=== PATIENT | male | born 1940 | race Caucasian/White ===

== ENCOUNTER 2021-10-31 10:58 | Outpatient (REF) | payer MEDICARE, OTHER, SELFPAY ==
[2021-10-31 12:20] LABS: Blood Urea Nitrogen 14 mg/dL (9-16); Estimated Glomerular Filt Rate > 60
== END 2021-10-31 10:59 | disposition home or self-care (01) ==
LOC: HO.LAB 10:58
PROVIDERS: PCP Internal Medicine; Referring Provider Internal Medicine Medical Oncology; Visit Provider Psychiatry & Neurology Neurology
DX: I63.50 Cerebral infarction due to unspecified occlusion or stenosis of unspecified cerebral artery (principal)
CPT/HCPCS: 36415; 82565; 84520

== ENCOUNTER 2021-11-08 08:51 | Outpatient (REF) | payer MEDICARE, OTHER, SELFPAY ==
--- NOTE | ~2021-11-08 | CT_ITS ---
EXAMINATION: CT ANGIOGRAM HEAD/NECK CLINICAL INFORMATION: 81-year-old with cerebral infarctions. COMPARISON: None TECHNIQUE: Volumetric CT angiography of the head and neck was done from the upper thorax to the skull vertex utilizing the bolus intravenous administration of 70 mL of Omnipaque 350 contrast material via power injector. Multiplanar reformatted reconstructions were performed with the addition of 3-D renderings performed on an independent workstation. The degree of stenosis determined by NASCET criteria. This CT examination was performed using dose optimization techniques as appropriate, variously including the following: *Automated exposure control *Adjustment of mA and/or kV according to patient size (this includes techniques or standardized protocols for targeted exams where dose is matched to indication/reason for exam; i.e. extremities or head) *Use of iterative reconstruction technique DLP: 2570 mGy-cm FINDINGS: Pre and postcontrast CT brain: Cthl-[id number] generalized diffuse brain parenchymal volume loss without focal regional predominance within the limitations of a qualitative assessment. There are patchy and confluent regions of hypodensity within the subcortical and deeper white matter of both cerebral hemispheres consistent with chronic ischemic microangiopathy. Ganglionic structures appear intact. There is a wedge-shaped zone of hypodensity spanning the neves-white junction with focal sulcal effacement in the left occipital lobe with minimal, faint gyral enhancement in this region consistent with a subacute left [employer] territory infarct. No other cortical infarcts are identified. There is a 6 mm ovoid hyperdensity in the posterior left centrum semiovale white matter with a rim of subtle surrounding hypodensity suggesting a small focus of parenchymal hemorrhage or hemorrhagic infarct. Small remote subcortical white matter infarcts are seen in the frontal lobes bilaterally. No extra-axial fluid collections are identified. The ventricular system and subarachnoid spaces are consistent with [id number] volume loss without hydrocephalus. Bilateral carotid calcifications are noted. Bony structures are intact. The visualized airspaces are unopacified. Probable cerumen in the EACs bilaterally. CTA NECK: The visualized thoracic aortic arch is patent and normal in caliber. There is a normal three-vessel arch configuration. The brachiocephalic vessels are patent and normal in caliber with some atheromatous calcification of the innominate artery. There is some atheromatous calcification near the origins of both vertebral arteries. The subclavian arteries are patent and normal in caliber bilaterally. The right vertebral artery is dominant. There is approximately 60% diameter reduction stenosis of the origin of the right vertebral artery utilizing NASCET type criteria. There is less than 50% diameter reduction stenosis at the origin of the left vertebral artery also using NASCET type criteria. Otherwise, the remainder of the cervical vertebral arteries are patent throughout the remainder of the neck without significant focal stenosis or segmental occlusion. The right common carotid artery is patent and normal in caliber. There is densely calcified plaque at the right carotid bulb spanning into the proximal right internal carotid artery. At the level of the right ICA origin, there is approximately 70% diameter reduction stenosis based on NASCET criteria. More distally within the proximal ICA, there is greater than 70% diameter reduction stenosis. The ECA is patent and normal in caliber. The mid to distal right ICA is patent and normal in caliber. The left common carotid artery is patent and normal in caliber. There are foci of calcified plaque spanning the left carotid bifurcation and left carotid bulb/proximal left ICA. There is approximately 50% diameter reduction of stenosis of the proximal left ICA. The ECA is patent and normal in caliber. More distally, the mid to distal left ICA is patent and normal in caliber. CTA HEAD: The intracranial internal carotid arteries are patent and normal in caliber with bilateral neural calcifications of the carotid siphons. The A1 and A2 segments are patent and normal in caliber. The M1 segments are patent and normal in caliber with a normal appearance to the M2 branches bilaterally. The intradural vertebral arteries are patent. There is some calcified plaque corresponding to both intradural vertebral arteries, left more than right without significant focal stenosis. The basilar artery is patent and normal in caliber. Superior cerebellar and posterior cerebral arteries are patent and normal in caliber. There is limited assessment of the visualized soft tissue neck structures due to the technique used. There is a 1.5 cm nodule in the left thyroid lobe. Recommend follow up thyroid ultrasound. 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 There are degenerative changes at the first costomanubrial junctions and also at the sternoclavicular junctions, right more than left. CT/CT angio head neck IMPRESSION: 1. Focal subacute infarct in the left posterior occipital lobe and a subcentimeter focus of acute or subacute parenchymal hemorrhage versus hemorrhagic infarct in the left posterior centrum semiovale white matter. Chronic ischemic microangiopathy in the white matter of both cerebral hemispheres with small remote subcortical white matter infarcts in the frontal lobes bilaterally. 2. Atheromatous calcified plaque at both carotid bifurcations and proximal ICAs, right more than left with 70% diameter reduction stenosis in the proximal right ICA and within the right carotid bulb, with less than 50% diameter reduction stenosis of the proximal left ICA by NASCET criteria. 3. Calcified plaque at the origins of the vertebral arteries bilaterally, with the right being dominant, with approximately 60% diameter reduction stenosis of the origin of the right vertebral artery and less than 50% diameter reduction stenosis at the origin of the left vertebral artery. 4. No intracranial arterial stenosis or occlusion. The [facility] staff will call to confirm receipt of this report with acknowledgement of the findings and any recommendations.
[2021-11-08] MEDS: iohexoL 350 MG/ML 100 ML INFUS..BTL IV (09:56)
== END 2021-11-08 08:52 | disposition home or self-care (01) ==
LOC: HO.CT 08:51
PROVIDERS: Visit Provider Psychiatry & Neurology Neurology
DX: I63.50 Cerebral infarction due to unspecified occlusion or stenosis of unspecified cerebral artery (principal)
CPT/HCPCS: 70496; 70498; Q9967

== ENCOUNTER → 2021-11-18 09:32 | Outpatient (REF) | payer MEDICARE, OTHER, SELFPAY ==
--- NOTE | 2021-11-18 09:38 | ECG_ITS ---
Hook-up date: 2021-11-18 08:52:00 Duration: 47:59:00 Test Indications: MULTIPLE CEREBRAL INFARCTIONS Medications: [id number] QRS complexes 175 Ventricular ectopics which represent <1 % of total QRS comp. 1069 Supraventricular ectopics which represent <1 % of total QRS comp. * Paced QRS complexs which represent % of total QRS comp. VENTRICULAR ECTOPY 175 Isolated 0 Bigeminal Cycles 0 Couplets 0 Runs 0 Beats in Runs * Beats LONGEST at * BPM at :: -- * Beats FASTEST at * BPM at :: -- SUPRAVENTRICULAR ECTOPY 942 Isolated 39 Couplets 8 Runs 49 Beats in Runs 15 Beats LONGEST at 142 BPM at 04:06:00 2021-11-20 6 Beats FASTEST at 173 BPM at 15:26:25 2021-11-19 HEART RATES 52 MIN at 01:33:04 2021-11-20 73 AVG 110 MAX at 15:41:22 2021-11-19 LONGEST RR 1.2560 secs at 10:51:36 2021-11-19 S-T LEVELS Channel 1 - 128 mm at 08:52:00 2021-11-18 - 128 mm at 08:52:00 2021-11-18 Channel 2 - 128 mm at 08:52:00 2021-11-18 - 128 mm at 08:52:00 2021-11-18 Channel 3 - 128 mm at 02:81:11 -- - 128 mm at 02:81:11 Basic rhythm Normal sinus rhythm No long pause or profound bradycardia Occasional Premature atrial complexes Multiple short runs of SVEs, longest 15 beats and fastest 173 bpm Patient did not report any symptoms in the diary Referred By: Mary Jasmine Overread By: CHENCHO BACA MD
== END ==
LOC: HO.CARD 09:32
PROVIDERS: PCP Internal Medicine; Visit Provider Psychiatry & Neurology Neurology
DX: Z86.73 Personal history of transient ischemic attack (TIA), and cerebral infarction without residual deficits (principal)
CPT/HCPCS: 93225; 93226

== ENCOUNTER 2022-01-25 09:58 | Inpatient (IN) | payer MEDICARE, OTHER, SELFPAY ==
[2022-01-25] VITALS (8 sets, daily range): BP systolic 90–157; BP diastolic 37–67; PULSE 81–97; RESP 13–20; TEMP 36.5–37.3; O2SAT 92–99; BMI 21.9
--- NOTE | ~2022-01-25 | XR_ITS ---
EXAMINATION: XR CHEST CLINICAL INFORMATION: Syncope, vomiting, prior pneumonia. COMPARISON: None TECHNIQUE: 2 views of the chest were obtained. FINDINGS: There are areas of parenchymal density seen lateral aspect of both lungs which may be related to pneumonitis however lung masses cannot be excluded. No definite hilar abnormalities appreciated. Heart normal size. No evidence of pulmonary edema. There appears to be a small right pleural effusion and minimal left posterior sulcus blunting which may represent a tiny effusion. No pneumothorax is identified. There is calcification of the anterior longitudinal ligament throughout the thoracic spine. XR/XR chest 2V IMPRESSION: Bilateral regions of parenchymal density which may be related to pneumonia however lung mass not excluded.
--- NOTE | ~2022-01-25 | CT_ITS ---
EXAMINATION: CT HEAD WITHOUT CONTRAST CLINICAL INFORMATION: Syncope COMPARISON: Previous head CTA October 2021 TECHNIQUE: Contiguous axial imaging was performed from the skull base to vertex without intravenous administration of contrast. This CT examination was performed using dose optimization techniques as appropriate, variously including the following: *Automated exposure control *Adjustment of mA and/or kV according to patient size (this includes techniques or standardized protocols for targeted exams where dose is matched to indication/reason for exam; i.e. extremities or head) *Use of iterative reconstruction technique DLP: 716 mGy-cm FINDINGS: There is no evidence of an extra-axial collection. There is no evidence of intra-axial or extra-axial hemorrhage. Ventricles and extra-axial CSF spaces are prominent suggestive of generalized atrophy. There is nonspecific periventricular white matter disease. There is an old or evolving left occipital infarct similar to October 2021 exam. There may be right frontal parietal subcortical white matter infarct that is similar to previous exam. No mass or mass effect or acute infarct is seen. There is atherosclerotic disease. No skull fracture is seen. Visualized paranasal sinuses, mastoid air cells and middle ears are clear. CT/CT head/brain wo IV con IMPRESSION: Generalized atrophy and nonspecific periventricular white matter disease. Left occipital and right subcortical white matter frontal infarcts similar to October 2021 exam. Small focus of intraparenchymal hemorrhage in the left posterior centrum semiovale is no longer seen.
--- NOTE | ~2022-01-25 | CT_ITS ---
EXAMINATION: CT CHEST WITHOUT CONTRAST CLINICAL INFORMATION: Chest mass. COMPARISON: Chest x-ray 01/25/2022. TECHNIQUE: Multidetector volumetric CT imaging of the chest was done. Axial MIP volume rendering provided. Sagittal and coronal reformatted images were obtained. This CT examination was performed using dose optimization techniques as appropriate, variously including the following: *Automated exposure control *Adjustment of mA and/or kV according to patient size (this includes techniques or standardized protocols for targeted exams where dose is matched to indication/reason for exam; i.e. extremities or head) *Use of iterative reconstruction technique DLP: 295 mGy-cm FINDINGS: LUNGS: Bilateral bibasilar atelectasis due to bilateral pleural effusions. There are also patchy parenchymal airspace opacities at the lateral anterior right lower lobe. There is a pleural-based masslike lesion at the anterior left upper lobe. This measures approximately 2.5 x 2.5 x 1.2 cm. Axial image 40/70 series 4, sagittal image 17/105 series 9. There is surrounding reticular linear opacities adjacent to this lesion.. MEDIASTINUM: Heart size is normal. Trace pericardial effusion. Moderate volume of coronary artery calcification. No mediastinal mass or significant lymphadenopathy. Thyroid is unremarkable. PLEURA: Moderate to large volume bilateral pleural effusions. AXILLA: No lymphadenopathy. UPPER ABDOMEN: Multiple ill-defined hypodense lesions of liver. Largest segment 8 right lobe of liver measuring about 5 cm. Given the presence of chest mass these are suspicious for metastatic disease. Status post cholecystectomy. Pancreas partially visualized is atrophic. No abnormality visualized portions of spleen or kidneys. Adrenal glands are normal. OSSEOUS STRUCTURES: Multilevel degenerative spondylosis of spine. There are mild osteosclerotic changes of the medial right clavicle at the sternoclavicular joint. Nonspecific but given the presence of the chest mass and liver lesions could be due to metastatic disease versus degenerative change. Sagittal image 66/29 series 9, axial image 15/70 series 4. There is no cortical loss or associated soft tissue mass. CT/CT chest wo IV con IMPRESSION: 1. Irregular pleural-based mass left upper lobe measuring 2.5 cm. This is suspicious. Consider interventional radiology consult to assess for tissue sampling. 2. Dependent atelectasis at both lung bases. Bilateral pleural effusions. 3. Multiple low attenuating lesions in the liver suspicious of metastatic disease. MRI without and with contrast may be helpful for further assessment. 4. Osteosclerotic medial right clavicle. Fleischner guidelines were followed.
--- NOTE | ~2022-01-25 | FL_ITS ---
EXAMINATION: XR BARIUM SWALLOW CLINICAL INFORMATION: Aspiration COMPARISON: None TECHNIQUE: Routine modified barium swallow was performed with the patient in a left lateral seated position. The patient took thin, nectar, honey-thick, and puree consistencies of barium without difficulty. FINDINGS: The patient demonstrated poor oral bolus formation. There was a slight delay in the swallow trigger mechanism with moderate pooling of fluid in the vallecula and piriform sinuses. There was good contraction and elevation of the soft palate without evidence of nasopharyngeal reflux. There was significantly limited posterior tilt of the epiglottis. This was likely obscured by the prominent anterior cervical osteophytes, particularly at the C3-C4 level. No cricopharyngeal abnormalities were noted. There was lack of distention of the esophagus below the level of the parapharyngeal sinuses. This may been secondary to small boluses of liquid getting to this level, although a fixed narrowing cannot be excluded. There was silent aspiration with nectar consistency. There was deep penetration with thin liquids, which was ejected after a new cue. FLUOROSCOPY TIME: 2.6 minutes DOSE AREA PRODUCT: 1.550 Gy-cm2 (neves-centimeter squared) FL/FL barium swallow modified IMPRESSION: Aspiration with nectar consistency. Deep penetration with thin liquids. Diminished oral pharyngeal phase of swallow, with significantly limited posterior tilt of the epiglottis likely secondary to obstruction by a prominent anterior cervical osteophyte. Please see speech pathologist report for further information and recommendations.
--- NOTE | 2022-01-25 10:08 | ED_ITS ---
HPI - Syncope General Chief Complaint: Fall Stated Complaint: SYNCOPE Time Seen by Provider: 01/25/22 10:05 Source: patient and EMS Mode of arrival: EMS Limitations: no limitations History of Present Illness HPI narrative: Patient presents to the emergency department via EMS from [facility], report from EMS entails that patient had a syncopal episode today while he was sitting in his wheelchair he slid forward onto the ground. There is reports of no head strike. He is reportedly at facility for short-term rehab, and being treated for pneumonia. When asking the patient why he is here he states he is unsure. He does endorse having a cough. He denies nausea or vomiting however he is holding an emesis bag and has noticed since arrival to be dry heaving. He denies fevers, chills, dizziness, chest pain, shortness of breath, difficulty breathing, abdominal pain, numbness or tingling to his extremities. Related Data Home Medications Medication Instructions Recorded Confirmed acetaminophen 325 mg tablet 650 mg PO Q6H PRN Pain 01/25/22 01/25/22 apixaban 5 mg tablet 5 mg PO BID 01/25/22 01/25/22 aspirin 81 mg tablet,delayed 1 tab PO DAILY 01/25/22 01/25/22 release dexamethasone 0.5 mg tablet 0.5 mg PO DAILY 01/25/22 01/25/22 losartan 50 mg tablet 50 mg PO DAILY 01/25/22 01/25/22 lovastatin 40 mg tablet 1 tab PO BEDTIME 01/25/22 01/25/22 melatonin 5 mg tablet 5 mg PO BEDTIME PRN Insomnia 01/25/22 01/25/22 pantoprazole 40 mg tablet,delayed 40 mg PO DAILY 01/25/22 01/25/22 release tafluprost (PF) 0.0015 % eye drops 1 drp ophthalmic (eye) BEDTIME 01/25/22 01/25/22 in a dropperette (Zioptan (PF)) timolol maleate (PF) 0.5 % eye 1 drp ophthalmic (eye) BEDTIME 01/25/22 01/25/22 drops in a dropperette Allergies Allergy/AdvReac Type Severity Reaction Status Date / Time brimonidine Allergy Unknown Unknown Verified 01/25/22 10:11 latanoprost Allergy Unknown Unknown Verified 01/25/22 10:11 Review of Systems Review of Systems: Constitutional: No fever. No chills. Positive weakness. Skin: No rash. No itching. Cardiovascular: No chest pain. No chest pressure. No palpitations. No pedal edema. Respiratory: No shortness of breath. Positive cough. Positive sputum production. Gastrointestinal: No anorexia. No nausea. No vomiting. No diarrhea. No abdominal pain. Genitourinary: No burning micturition. No urinary frequency. No incontinence. Neurologic: No headache. No dizziness. Positive syncope. No unilateral weakness. No numbness. No tingling. Musculoskeletal: No muscle pain. No back pain. No joint pain. No stiffness. Yes all other systems are reviewed and are negative PMFSH Past Medical History Attestation statement: The following information was validated with the patient. Source: old records reviewed Medical History Cancer of liver CVA, old, hemiparesis Social History Social History Alcohol intake: never Patient Tobacco Use Status: Never used Tobacco Use of substances other than those prescribed or required for medical reasons: No Advance Directives: Yes Advance Directives on File: No Physical Exam Vital Signs: Vital Signs: Last Vital Signs Temp 97.9 F 01/25/22 15:54 Pulse 93 01/25/22 15:54 Resp 20 01/25/22 15:54 BP 127/38 L 01/25/22 15:54 Pulse Ox 95 01/25/22 15:54 O2 Del Method 01/25/22 15:54 BMI result Body Mass Index 21.9 Appearance: Alert.?Disoriented to person, place and time. No acute distress.?Normal affect. Eyes: Pupils equal, round and reactive to light.? EOMI. No nystagmus. ENT: Pharynx normal.?? Neck: Normal inspection.? Neck supple.?? CVS: Heart sounds normal. Normal heart rate and rhythm.? Pulses normal.?? Respiratory: No respiratory distress.? Lung sounds clear to auscultation bilaterally?? Abdomen: Soft and non-tender. Normoactive bowel sounds. No pulsatile mass.?? Skin: Skin warm and dry.? Normal skin color.? Extremities: No lower extremity edema.? No calf ttp? Neuro: Moves all extremities spontaneously. Sensation intact bilaterally. No focal neuro deficits. 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 Patient is a full code. He is a vague historian surrounding the events preceding arrival to the hospital. He currently appears in no distress, initially thought to be dry heaving though denying nausea/vomiting, suspect that this may be his attempt to clear secretions, notable yellow/brown, blood tinged sputum. Will obtain CBC to evaluate for leukocytosis/ anemia, CMP to evaluate for abnormal electrolytes /abnormal renal function/ abnormal hepatic/biliary function, EKG and troponin to evaluate for ischemia/ACS. Chest x-ray to evaluate for consolidation/ infiltrate/ mass/ pulmonary congestion, Urinalysis, CT head to exclude intracranial pathology as a source for syncope. Reevaluation(s) Reevaluation #1: I contacted the facility and spoke with the nurse practitioner Florencio. She states that patient was initially evaluated at [facility], he was found to have pneumonia and bilateral pulmonary embolisms. History of a CVA, date is unknown by his had dysplasia since the CVA. Nurse practitioner reports that while he has been in the facility has been having worsening dysphagia, increased confusion, baseline is disoriented x3, has become more deconditioned, not eating or drinking. His healthcare proxy was invoked 01/23/2022 which is his daughter Emerald Flores [phone]. Today sometime after breakfast patient was sitting in the chair and became unresponsive he did not slide out of the chair as initially reported he was lifted out of the chair and onto the bed, was noted to have gurgling secretions and there was concern for aspiration at this time. Per their report patient completed course of Augmentin on 01/10/2022, and is currently on Eliquis 5 mg twice daily for the bilateral pulmonary embolisms. He does have a history of liver cancer he is currently receiving dexamethasone daily, and his oral chemotherapy agent is on hold and per oncology is to be started over the next week. Daughter/healthcare proxy Bettye is currently at bedside to provide clarification. He has had intermittent confusion thought to be delirium typically occurring on the weekends over the past couple of weeks. She states that since 4 days ago he became confused but has not return to his normal baseline mentation which is atypical for him. She further reports that he has not yet started any oral chemotherapy agents. Since July 2021 is when he initially started receiving care after confusion was noted, he subsequently was diagnosed with CVA, and liver cancer. - Review of CT angio head and neck from October 2021 reveals a focal subacute infarct of the left posterior occipital lobe with chronic ischemic microangiopathy ICA stenosis and stenosis of bilateral vertebral arteries. Time: 10:27 Reevaluation #2: Initial EKG reveals normal sinus rhythm, however while in the room with patient monitor showing irregular rhythm with rate variable from 60s up to 130, will obtain repeat EKG for more accurate evaluation. Will add on blood cultures and lactic acid, and patient to receive ceftriaxone IV, concern for possible aspiration pneumonia, pending results of chest x-ray. Time: 10:49 Reevaluation #3: Repeat EKG does reveal sinus tachycardia with PACs and PVCs. CBC indicates leukocytosis WBC 13.4, and thrombocytopenia which appears new since 01/16/2022. Time: 11:18 Additional Reevaluation(s): 1155: Received critical results from lab lactic acid is 2.3. elevated troponin 130.8, to EKGs have already been reviewed with no acute ischemic findings, however will obtain delta troponin for repeat evaluation. Patient noted to have hypernatremia at 01:52, hypokalemia at 3.1, BUN of 39 and creatinine 1.05. Elevated transaminases. Would defer sepsis fluid bolus at this time, do not want to over correct hypernatremia to rapidly, at this time patient to receive normal saline 1 L IV bolus, potassium 10 mEq IV given his dysphagia would avoid replating orally at this time. Spoke with family and updated on all findings. Advised chest x-ray may be consistent with pneumonia verses mass/metastasis, at this time they are not interested in pursuing biopsy. They do report that he had a recent CT of the abdomen at [facility], which they were told included the bases of the lungs, but were not advised of any mass/possible metastasis at that time. Spoke with hospitalist, Dr. Mack, who accepts patient for admission to medicine service MDM - Syncope Medical Records Attestation: I reviewed the patient's medical records. Lab Data Attestation: I reviewed the patient's lab results. Result diagrams: 01/25/22 11:04 01/25/22 14:01 Labs: Lab Results 01/25/22 01/25/22 01/25/22 Range/Units 11:04 11:04 11:04 WBC 13.4 H (4.8-10.8) X10*3/uL RBC 4.38 L (4.60-5.80) X10*6/uL Hgb 12.2 L (14.0-18.0) g/dl Hct 39.8 L (42.0-52.0) % MCV 90.9 (80.0-98.0) fL MCH 27.9 (27.0-33.0) pg MCHC 30.7 L (31.0-36.0) g/dl RDW 15.7 (11.0-16.0) % Plt Count 107 L (160-400) X10*3/uL MPV 11.4 (9.4-12.4) fL Immature Gran % (Auto) 0.7 H (0.0-0.4) % Neut % (Auto) 78.9 H (45-73) % Lymph % (Auto) 13.9 L (20-40) % [place] % (Auto) 6.3 (2-11) % Eos % (Auto) 0.1 (0-4) % Baso % (Auto) 0.1 (0-2) % Lymph # (Auto) 1.9 (1.2-4.9) X10*3/uL [place] # (Auto) 0.8 (0.1-1.2) X10*3/uL Eos # (Auto) 0.0 (0.0-0.4) X10*3/uL Baso # (Auto) 0.0 (0.0-0.2) X10*3/uL Abs Immat Gran (auto) 0.10 H (0.00-0.03) X10*3/uL Absolute Neuts (auto) 10.6 H (2.0-8.3) x10*3/uL Absolute Nucleated RBC 0.000 (0.0-0.012) X10*3/uL Nucleated RBC % (auto) 0.0 (0.0-0.2) /100WBC Sodium 152 H (135-145) mmol/L Potassium 3.1 L (3.3-5.1) mmol/L Chloride 107 (96-108) mmol/L Carbon Dioxide 28 (22-29) mmol/L Anion Gap 20 (12-20) BUN 39 H (9-16) mg/dL Creatinine 1.05 (0.5-1.4) mg/dL Estim Creat Clear Calc 52.4 Estimated GFR > 60 Random Glucose 119 H (60-115) mg/dL Lactic Acid (0.5-2.0) mmol/L Lactic Acid F/U @ 2Hr (0.5-2.0) mmol/L Calcium 8.7 (8.4-10.2) mg/dL Magnesium 2.1 (1.6-2.6) mg/dL Total Bilirubin 2.4 H (0.0-1.0) mg/dL AST 173 H (5-37) U/L ALT 104 H (0-40) U/L Alkaline Phosphatase 1325 H D (39-117) U/L Troponin I High Sens 130.8 H* (<3.5-35.0) ng/L B-Natriuretic Peptide (<100) pg/mL Total Protein 6.3 L (6.5-8.0) g/dL Albumin 3.2 L (3.5-5.0) g/dL COVID-19 ([facility]) (Negative) COVID-19 Clin Com 01/25/22 01/25/22 01/25/22 Range/Units 11:04 11:04 11:04 WBC (4.8-10.8) X10*3/uL RBC (4.60-5.80) X10*6/uL Hgb (14.0-18.0) g/dl Hct (42.0-52.0) % MCV (80.0-98.0) fL MCH (27.0-33.0) pg MCHC (31.0-36.0) g/dl RDW (11.0-16.0) % Plt Count (160-400) X10*3/uL MPV (9.4-12.4) fL Immature Gran % (Auto) (0.0-0.4) % Neut % (Auto) (45-73) % Lymph % (Auto) (20-40) % [place] % (Auto) (2-11) % Eos % (Auto) (0-4) % Baso % (Auto) (0-2) % Lymph # (Auto) (1.2-4.9) X10*3/uL [place] # (Auto) (0.1-1.2) X10*3/uL Eos # (Auto) (0.0-0.4) X10*3/uL Baso # (Auto) (0.0-0.2) X10*3/uL Abs Immat Gran (auto) (0.00-0.03) X10*3/uL Absolute Neuts (auto) (2.0-8.3) x10*3/uL Absolute Nucleated RBC (0.0-0.012) X10*3/uL Nucleated RBC % (auto) (0.0-0.2) /100WBC Sodium (135-145) mmol/L Potassium (3.3-5.1) mmol/L Chloride (96-108) mmol/L Carbon Dioxide (22-29) mmol/L Anion Gap (12-20) BUN (9-16) mg/dL Creatinine (0.5-1.4) mg/dL Estim Creat Clear Calc Estimated GFR Random Glucose (60-115) mg/dL Lactic Acid 2.3 H* (0.5-2.0) mmol/L Lactic Acid F/U @ 2Hr (0.5-2.0) mmol/L Calcium (8.4-10.2) mg/dL Magnesium (1.6-2.6) mg/dL Total Bilirubin (0.0-1.0) mg/dL AST (5-37) U/L ALT (0-40) U/L Alkaline Phosphatase (39-117) U/L Troponin I High Sens (<3.5-35.0) ng/L B-Natriuretic Peptide 304 H (<100) pg/mL Total Protein (6.5-8.0) g/dL Albumin (3.5-5.0) g/dL COVID-19 ([facility]) Negative (Negative) COVID-19 Clin Com See Note 01/25/22 01/25/22 01/25/22 Range/Units 14:01 14:01 14:01 WBC (4.8-10.8) X10*3/uL RBC (4.60-5.80) X10*6/uL Hgb (14.0-18.0) g/dl Hct (42.0-52.0) % MCV (80.0-98.0) fL MCH (27.0-33.0) pg MCHC (31.0-36.0) g/dl RDW (11.0-16.0) % Plt Count (160-400) X10*3/uL MPV (9.4-12.4) fL Immature Gran % (Auto) (0.0-0.4) % Neut % (Auto) (45-73) % Lymph % (Auto) (20-40) % [place] % (Auto) (2-11) % Eos % (Auto) (0-4) % Baso % (Auto) (0-2) % Lymph # (Auto) (1.2-4.9) X10*3/uL [place] # (Auto) (0.1-1.2) X10*3/uL Eos # (Auto) (0.0-0.4) X10*3/uL Baso # (Auto) (0.0-0.2) X10*3/uL Abs Immat Gran (auto) (0.00-0.03) X10*3/uL Absolute Neuts (auto) (2.0-8.3) x10*3/uL Absolute Nucleated RBC (0.0-0.012) X10*3/uL Nucleated RBC % (auto) (0.0-0.2) /100WBC Sodium 156 H (135-145) mmol/L Potassium 3.5 (3.3-5.1) mmol/L Chloride 109 H (96-108) mmol/L Carbon Dioxide 28 (22-29) mmol/L Anion Gap 22 H (12-20) BUN 41 H (9-16) mg/dL Creatinine 1.02 (0.5-1.4) mg/dL Estim Creat Clear Calc 53.9 Estimated GFR > 60 Random Glucose 109 (60-115) mg/dL Lactic Acid (0.5-2.0) mmol/L Lactic Acid F/U @ 2Hr 3.1 H* (0.5-2.0) mmol/L Calcium 8.5 (8.4-10.2) mg/dL Magnesium (1.6-2.6) mg/dL Total Bilirubin (0.0-1.0) mg/dL AST (5-37) U/L ALT (0-40) U/L Alkaline Phosphatase (39-117) U/L Troponin I High Sens 120.6 H* (<3.5-35.0) ng/L B-Natriuretic Peptide (<100) pg/mL Total Protein (6.5-8.0) g/dL Albumin (3.5-5.0) g/dL COVID-19 ([facility]) (Negative) COVID-19 Clin Com Imaging Data Chest x-ray: Radiologist's impression: XR/XR chest 2V IMPRESSION: Bilateral regions of parenchymal density which may be related to pneumonia however lung mass not excluded. CT scan - head: Radiologist's impression: CT/CT head/brain wo IV con IMPRESSION: Generalized atrophy and nonspecific periventricular white matter disease. Left occipital and right subcortical white matter frontal infarcts similar to October 2021 exam. Small focus of intraparenchymal hemorrhage in the left posterior centrum semiovale is no longer seen. ECG Data Attestation: I personally reviewed and interpreted this ECG as follows: ECG interpretation date: 01/25/22 Interpretation: Rate: 86 Rhythm:? Normal sinus rhythm Normal P waves.? Normal [place].?? Normal QRS complex.?? ST T wave :??No ST elevation, no ST depression, nonspecific ST abnormality qTC: 356 prior studies:? None available for review The study has been interpreted contemporaneously by me. Discharge Plan Discharge Clinical Impression: Dehydration, Hypernatremia, Hypokalemia, Pneumonia, Elevated troponin, Cancer of liver, Sepsis Patient Disposition: Admitted As Inpatient
--- NOTE | 2022-01-25 10:11 | ECG_ITS ---
Test Reason : syncope Blood Pressure : / mmHG Vent. Rate : 086 BPM Atrial Rate : 086 BPM P-R Int : 114 ms QRS Dur : 082 ms QT Int : 298 ms P-R-T Axes : 049 -15 054 degrees QTc Int : 356 ms Normal sinus rhythm Nonspecific ST and T wave abnormality Abnormal ECG No previous ECGs available Referred By: Dea Cobb Electronically Signed By:MELY ARRIETA
--- NOTE | 2022-01-25 10:47 | ECG_ITS ---
Test Reason : syncope repeat Blood Pressure : / mmHG Vent. Rate : 118 BPM Atrial Rate : 125 BPM P-R Int : 114 ms QRS Dur : 078 ms QT Int : 330 ms P-R-T Axes : 056 -18 072 degrees QTc Int : 462 ms Sinus tachycardia with Premature atrial complexes with Aberrant conduction Nonspecific T wave abnormality Abnormal ECG When compared with ECG of 25-JAN-2022 10:04, Aberrant conduction is now Present Heart rate has increased Referred By: Dea Cobb Electronically Signed By:MELY ARRIETA
[2022-01-25] MEDS: cefTRIAXone sodium 1 GM in 0.9 % Sodium Chloride 50 ML IV (11:05)
[2022-01-25 11:11] LABS: MANUAL DIFF FLAG NO
[2022-01-25 11:17] LABS: Basophils Percent Auto 0.1 % (0-2); Eosinophils Percent Auto 0.1 % (0-4); Hematocrit 39.8 % (42.0-52.0); Hemoglobin 12.2 g/dl (14.0-18.0); Imm Gran Pct Auto 0.7 % (0.0-0.4); Lymphocytes Absolute Auto 1.9 X10*3/uL (1.2-4.9); Lymphocytes Percent Auto 13.9 % (20-40); Mean Corpuscular HGB Conc 30.7 g/dl (31.0-36.0); Mean Corpuscular Hemoglobin 27.9 pg (27.0-33.0); Mean Corpuscular Volume 90.9 fL (80.0-98.0); Mean Platelet Volume 11.4 fL (9.4-12.4); Monocytes Absolute Auto 0.8 X10*3/uL (0.1-1.2); Monocytes Percent Auto 6.3 % (2-11); Neutrophils Absolute Auto 10.6 x10*3/uL (2.0-8.3); Neutrophils Percent Auto 78.9 % (45-73); Platelet Count 107 X10*3/uL (160-400); Red Blood Count 4.38 X10*6/uL (4.60-5.80); Red Cell Distribution Width 15.7 % (11.0-16.0); White Blood Count 13.4 X10*3/uL (4.8-10.8)
[2022-01-25 11:36] LABS: B Type Natriuretic Peptide 304 pg/mL (<100)
[2022-01-25 11:37] LABS: COVID-19 Test Negative (Negative); IDNOW Serial# 9DB6401D
[2022-01-25 11:51] LABS: Alanine Aminotransferase 104 U/L (0-40); Albumin Level 3.2 g/dL (3.5-5.0); Alkaline Phosphatase 1325 U/L (39-117); Anion Gap 20 (12-20); Aspartate Amino Transferase 173 U/L (5-37); Bilirubin Total 2.4 mg/dL (0.0-1.0); Blood Urea Nitrogen 39 mg/dL (9-16); Calcium 8.7 mg/dL (8.4-10.2); Carbon Dioxide 28 mmol/L (22-29); Chloride 107 mmol/L (96-108); Creatinine Clr Calc Pharmacy 52.4; Estimated Glomerular Filt Rate > 60; Glucose Random 119 mg/dL (60-115); Magnesium 2.1 mg/dL (1.6-2.6); Potassium 3.1 mmol/L (3.3-5.1); Sodium 152 mmol/L (135-145); Total Protein 6.3 g/dL (6.5-8.0)
[2022-01-25 11:54] LABS: Lactic Acid 2.3 mmol/L (0.5-2.0)
[2022-01-25 11:55] LABS: Troponin-I High Sensitivity 130.8 ng/L (<3.5-35.0)
[2022-01-25 13:09] LABS: Reflex Lactate? Lactic Acid Added
[2022-01-25] MEDS: 0.9 % Sodium Chloride 1,000 ML 999 ML IV (13:35)
[2022-01-25] MEDS: Potassium Chloride/H20 10 MEQ/100 ML PIGGYBACK 100 MEQ IV (13:38)
--- NOTE | 2022-01-25 14:02 | PHA.MEDREC ---
Pharmacy Consult ? Medication Reconciliation Pharmacy has completed the medication reconciliation. Utilized list from [facility]
[2022-01-25 14:33] LABS: ~Lactic Acid-LAB USE ONLY 3.1 mmol/L (0.5-2.0)
[2022-01-25 14:37] LABS: Anion Gap 22 (12-20); Blood Urea Nitrogen 41 mg/dL (9-16); Calcium 8.5 mg/dL (8.4-10.2); Carbon Dioxide 28 mmol/L (22-29); Chloride 109 mmol/L (96-108); Creatinine Clr Calc Pharmacy 53.9; Estimated Glomerular Filt Rate > 60; Glucose Random 109 mg/dL (60-115); Potassium 3.5 mmol/L (3.3-5.1); Sodium 156 mmol/L (135-145)
[2022-01-25 14:42] LABS: Troponin-I High Sensitivity 120.6 ng/L (<3.5-35.0)
--- NOTE | 2022-01-25 15:15 | PM.IMHP ---
History of Present Illness Date of Service: 01/25/22 Chief Complaint: Fall, weakness, confusion An 81 years old male with PMH of PE on Eliquis, CVA with left hemiparesis, dysphagia, liver cancers, HTN, BPH among other who presented to the hospital from [facility] with confusion and a fall. The patient was not able to provide much of history but said that he has been feeling weaker and not eating well for the last few weeks. His at the bedside reported that he went from [facility] to the hospital when he was diagnosed with PE then went back to a different facility where he sting right now. She reports that he has been losing weight consistently for the last few months and his appetite was very low. His metastatic liver cancer is not on any active treatment at this point. The family still want him to be full code but they are open to discuss other options. Today he had a fall and an episode of being unresponsive at the facility with no reported head injury. Evaluated in the emergency with chest x-ray which showed an evidence of pneumonia versus mass. Lab workup was consistent with hypernatremia and elevated liver enzymes. Noticed to have leukocytosis with lactic acidosis. Admitted for further evaluation and treatment. Review of Systems Review of Systems: Having chills and reporting generalized weakness No chest pain, palpitation Coughing but denies feeling short of breath at rest No abdominal pain, nausea or vomiting No urinary symptoms Denies any rash or wounds PMFSH Medical History Cancer of liver CVA, old, hemiparesis Social History Alcohol intake: never Patient Tobacco Use Status: Never used Tobacco Use of substances other than those prescribed or required for medical reasons: No Advance Directives: Yes Advance Directives on File: No Meds Allergies Allergy/AdvReac Type Severity Reaction Status Date / Time brimonidine Allergy Unknown Unknown Verified 01/25/22 10:11 latanoprost Allergy Unknown Unknown Verified 01/25/22 10:11 Active Medications: Current Medications Dextrose (D5w) 1,000 mls @ 125 mls/hr IVCONT .Q8H BREE Piperacillin Sod/Tazobactam (Sod 3.375 gm/ Sodium Chloride) 50 mls @ 100 mls/hr IV Q6H [facility] Pharmacy Consult (Consult Rx Perform Med Rec) 1 each MISCELLANE ONCE PRN PRN Reason: Consult order Home Medications Medication Instructions Recorded Confirmed Last Taken Type acetaminophen 325 mg tablet 650 mg PO Q6H PRN Pain 01/25/22 01/25/22 Unknown History apixaban 5 mg tablet 5 mg PO BID 01/25/22 01/25/22 Unknown History aspirin 81 mg tablet,delayed 1 tab PO DAILY 01/25/22 01/25/22 Unknown History release dexamethasone 0.5 mg tablet 0.5 mg PO DAILY 01/25/22 01/25/22 Unknown History losartan 50 mg tablet 50 mg PO DAILY 01/25/22 01/25/22 Unknown History lovastatin 40 mg tablet 1 tab PO BEDTIME 01/25/22 01/25/22 Unknown History melatonin 5 mg tablet 5 mg PO BEDTIME PRN Insomnia 01/25/22 01/25/22 Unknown History pantoprazole 40 mg tablet,delayed 40 mg PO DAILY 01/25/22 01/25/22 Unknown History release tafluprost (PF) 0.0015 % eye drops 1 drp ophthalmic (eye) BEDTIME 01/25/22 01/25/22 Unknown History in a dropperette (Zioptan (PF)) timolol maleate (PF) 0.5 % eye 1 drp ophthalmic (eye) BEDTIME 01/25/22 01/25/22 Unknown History drops in a dropperette Physical Exam Vital Signs and Narrative: Vital Signs: Last Vital Signs Temp 98.6 F 01/25/22 10:30 Pulse 97 01/25/22 13:40 Resp 18 01/25/22 13:40 BP 155/57 H 01/25/22 13:40 Pulse Ox 96 01/25/22 13:40 O2 Del Method 01/25/22 13:40 BMI result Body Mass Index 21.9 Const: Other: Constitutional : Alert, interactive, shivering and mild distress Neck : Normal inspection, Supple Cardiovascular : RRR, no JVP, no lower extremity edema Respiratory : fair bilateral air entry, basal bilateral crackles, no wheezes Gastrointestinal: soft, lax, Normal bowel sounds, Non tender Skin : Warm, Dry Neurological : Alert & oriented to place and self, left-sided hemiparesis Results Labs CBC and Chem 7: 01/25/22 11:04 01/25/22 14:01 Labs: Laboratory Results - last 24 hr 01/25/22 01/25/22 01/25/22 11:04 11:04 11:04 MCV 90.9 MCH 27.9 MCHC 30.7 L RDW 15.7 Plt Count 107 L MPV 11.4 Immature Gran % (Auto) 0.7 H Neut % (Auto) 78.9 H Lymph % (Auto) 13.9 L Briscoe % (Auto) 6.3 Eos % (Auto) 0.1 Baso % (Auto) 0.1 Lymph # (Auto) 1.9 [place]iscoe # (Auto) 0.8 Eos # (Auto) 0.0 Baso # (Auto) 0.0 Abs Immat Gran (auto) 0.10 H Absolute Neuts (auto) 10.6 H Absolute Nucleated RBC 0.000 Nucleated RBC % (auto) 0.0 Anion Gap 20 Estim Creat Clear Calc 52.4 Estimated GFR > 60 Random Glucose 119 H Lactic Acid Lactic Acid F/U @ 2Hr Calcium 8.7 Magnesium 2.1 Total Bilirubin 2.4 H AST 173 H ALT 104 H Alkaline Phosphatase 1325 H D B-Natriuretic Peptide Total Protein 6.3 L Albumin 3.2 L COVID-19 ([facility]) Negative COVID-19 Clin Com See Note 01/25/22 01/25/22 01/25/22 11:04 11:04 14:01 MCV MCH MCHC RDW Plt Count MPV Immature Gran % (Auto) Neut % (Auto) Lymph % (Auto) Briscoe % (Auto) Eos % (Auto) Baso % (Auto) Lymph # (Auto) Briscoe # (Auto) Eos # (Auto) Baso # (Auto) Abs Immat Gran (auto) Absolute Neuts (auto) Absolute Nucleated RBC Nucleated RBC % (auto) Anion Gap Estim Creat Clear Calc Estimated GFR Random Glucose Lactic Acid 2.3 H* Lactic Acid F/U @ 2Hr 3.1 H* Calcium Magnesium Total Bilirubin AST ALT Alkaline Phosphatase B-Natriuretic Peptide 304 H Total Protein Albumin COVID-19 ([facility]) COVID-19 Clin Com 01/25/22 14:01 MCV MCH MCHC RDW Plt Count MPV Immature Gran % (Auto) Neut % (Auto) Lymph % (Auto) Briscoe % (Auto) Eos % (Auto) Baso % (Auto) Lymph # (Auto) Briscoe # (Auto) Eos # (Auto) Baso # (Auto) Abs Immat Gran (auto) Absolute Neuts (auto) Absolute Nucleated RBC Nucleated RBC % (auto) Anion Gap 22 H Estim Creat Clear Calc 53.9 Estimated GFR > 60 Random Glucose 109 Lactic Acid Lactic Acid F/U @ 2Hr Calcium 8.5 Magnesium Total Bilirubin AST ALT Alkaline Phosphatase B-Natriuretic Peptide Total Protein Albumin COVID-19 ([facility]) COVID-19 Clin Com Imaging Radiologist's Impressions: Impressions Chest X-Ray 01/25/22 11:30 IMPRESSION: Bilateral regions of parenchymal density which may be related to pneumonia however lung mass not excluded. Head CT 01/25/22 12:12 IMPRESSION: Generalized atrophy and nonspecific periventricular white matter disease. Left occipital and right subcortical white matter frontal infarcts similar to October 2021 exam. Small focus of intraparenchymal hemorrhage in the left posterior centrum semiovale is no longer seen. Assessment and Plan (1) Cancer of liver: Status: Inactive (2) Hypernatremia: Status: Acute (3) Dehydration: Status: Acute (4) Hypokalemia: Status: Acute (5) Pneumonia: Status: Acute (6) Sepsis: Status: Acute (7) Transaminitis: Status: Acute Plan An 81 years old male with PMH of PE on Eliquis, CVA with left hemiparesis, dysphagia, liver cancers, HTN, BPH among other who presented to the hospital from [facility] with confusion and a fall. Sepsis secondary to aspiration pneumonia Leukocytosis, lactic acidosis and tachycardia CXR concerning for bilateral basal infiltrate BS masses Pending blood cultures Start IV Zosyn Modified diet Metabolic encephalopathy 2/2 Hypernatremia secondary to dehydration Sodium of 156 at time of admission Start hydration with dextrose water Follow BMP closely with goal to decrease it by 8 Q 24 hours Transaminitis Likely secondary to sepsis and liver cancer To repeat values after starting treatment and monitor closely Hypokalemia Potassium of 3.1 from decreased oral intake Follow BMP Liver cancer Not on any active treatment at this point Family open to discuss goals of care Hypertension next Lyme continue losartan PE next Lyme continue Eliquis DVT PPX Eliquis The patient will need 2. Overnight hospital stay for treatment of sepsis and hypernatremia pending final blood cultures to prevent possible decompensation in to severe sepsis. Quality Stroke Does the patient have a stroke diagnosis?: No VTE Prior VTE?: No VTE Risk Level:: Medical - moderate - high VTE Device Contraindication: Treatment Not Indicated VTE Drug Contraindication: N/A - Med Ordered
--- NOTE | 2022-01-25 15:28 | PC.NURSE ---
Addendum entered by Beny Bonilla 01/25/22 15:42: made aware of patients request Original Note: Per patients patient needs nector thick liquids
[2022-01-25] MEDS: Piperacillin Sodium/Tazobactam 3.375 GM in 0.9 % Sodium Chloride 50 ML IV (16:05)
--- NOTE | 2022-01-25 16:06 | PC.NURSE ---
Addendum entered by Beny Bonilla 01/25/22 16:29: Patients HR fluctuating between 80s and 130s. MD aware. Original Note: made aware of patients fluctuating HR and low BP
[2022-01-25 16:09] LABS: Reflex Lactate? 2 Y
[2022-01-25] MEDS: Dextrose 5 % 1,000 ML 125 ML IVCONT (16:18)
[2022-01-25 17:55] LABS: ~Lactic Acid-LAB USE ONLY 2.9 mmol/L (0.5-2.0)
--- NOTE | 2022-01-25 17:58 | PC.NURSE ---
Dr. Scott notified about critical result of lactic acid 2.9
--- NOTE | 2022-01-25 18:15 | PC.NURSE ---
THIS ACCOUNTING/FINANCE TUTOR TRIED TO FEED PATIENT DINNER ,PATIENT REFUSED TO EAT OF DRINK ,PATIENT STATED HE DOES NOT WANT TO EAT OR DRINK ,PATIENT CONTINUE TO BE DRIED AND REPOSITION OFTEN ,RN MYRA AWARE .
[2022-01-25] MEDS: Lactated Ringers 1,000 ML 999 ML IV (18:34)
[2022-01-25 20:27] LABS: Lactic Acid 2.2 mmol/L (0.5-2.0)
[2022-01-25 20:28] LABS: Anion Gap 16 (12-20); Blood Urea Nitrogen 41 mg/dL (9-16); Calcium 7.8 mg/dL (8.4-10.2); Carbon Dioxide 28 mmol/L (22-29); Chloride 109 mmol/L (96-108); Creatinine Clr Calc Pharmacy 57.3; Estimated Glomerular Filt Rate > 60; Glucose Random 154 mg/dL (60-115); Potassium 3.1 mmol/L (3.3-5.1); Sodium 150 mmol/L (135-145)
[2022-01-25 22:06] LABS: Reflex Lactate? Lactic Acid Added
[2022-01-25 23:34] LABS: ~Lactic Acid-LAB USE ONLY 2.1 mmol/L (0.5-2.0)
--- NOTE | 2022-01-26 | ECG_ITS ---
Test Reason : SYNCOPE Blood Pressure : / mmHG Vent. Rate : 064 BPM Atrial Rate : 064 BPM P-R Int : 124 ms QRS Dur : 090 ms QT Int : 384 ms P-R-T Axes : 028 -20 -02 degrees QTc Int : 396 ms Sinus rhythm with Premature atrial complexes Nonspecific T wave abnormality Abnormal ECG When compared with ECG of 25-JAN-2022 11:02, Vent. rate has decreased BY 54 BPM Nonspecific T wave abnormality, improved in Inferior leads Nonspecific T wave abnormality no longer evident in Anterior leads Referred By: Misa Gómez Electronically Signed By:MELY ARRIETA
[2022-01-26] MEDS: Piperacillin Sodium/Tazobactam 3.375 GM in 0.9 % Sodium Chloride 50 ML IV ×5 (00:10→22:42)
[2022-01-26] MEDS: 0.9 % Sodium Chloride Flush 3 ML SYRINGE IVFLUSH ×2 (00:11→08:07)
[2022-01-26] MEDS: Pravastatin Sodium 40 MG TABLET PO ×2 (00:12→21:26)
[2022-01-26] MEDS: Apixaban 5 MG TABLET PO ×3 (00:12→21:26)
[2022-01-26] MEDS: timoloL maleate 0.5 % Oph Sol 5 ML DRBTL 1 DROP EYE-BOTH ×2 (00:13→21:30)
[2022-01-26 00:54] LABS: Reflex Lactate? 2 Y
[2022-01-26 01:09] VITALS: BMI 21.9
[2022-01-26] MEDS: Dextrose 5 % 1,000 ML 125 ML IVCONT ×2 (03:25→11:08)
[2022-01-26 04:00] VITALS: BP 156/86; PULSE 85; RESP 18; TEMP 36.8; O2SAT 98
[2022-01-26 07:36] VITALS: BP 153/68; PULSE 73; RESP 20; TEMP 36.7
[2022-01-26] MEDS: Losartan Potassium 50 MG TABLET PO (08:06)
[2022-01-26] MEDS: Aspirin Enteric Coated 81 MG TABLET.DR PO (08:07)
[2022-01-26 09:24] LABS: Hemoglobin 11.5 g/dl (14.0-18.0); Mean Corpuscular HGB Conc 31.1 g/dl (31.0-36.0); Mean Corpuscular Volume 90.2 fL (80.0-98.0); Red Cell Distribution Width 15.9 % (11.0-16.0); White Blood Count 21.3 X10*3/uL (4.8-10.8)
[2022-01-26 09:37] LABS: Anion Gap 14 (12-20); Blood Urea Nitrogen 36 mg/dL (9-16); Calcium 7.6 mg/dL (8.4-10.2); Carbon Dioxide 28 mmol/L (22-29); Chloride 107 mmol/L (96-108); Creatinine Clr Calc Pharmacy 58.5; Estimated Glomerular Filt Rate > 60; Glucose Random 161 mg/dL (60-115); Potassium 3.1 mmol/L (3.3-5.1); Sodium 146 mmol/L (135-145)
[2022-01-26 09:38] LABS: Alanine Aminotransferase 81 U/L (0-40); Albumin Level 2.6 g/dL (3.5-5.0); Alkaline Phosphatase 989 U/L (39-117); Aspartate Amino Transferase 124 U/L (5-37); Bilirubin Direct 1.2 mg/dL (0.0-0.5); Bilirubin Total 2.1 mg/dL (0.0-1.0); Total Protein 5.2 g/dL (6.5-8.0)
--- NOTE | 2022-01-26 09:46 | MHC.CM.PN ---
CM MET WITH PT AND HIS DAUGHTER, ALEXANDRE, WHO WAS AT BEDSIDE SHE REPORTS THE PT LIVES AT HOME WITH HIS AND WAS RECEIVING VNA SERVICES FROM [facility] SHE REPORTS HE WAS USING A CANE BUT PRIOR TO STR ADMISSION, WAS REQUIRING A WALKER AND SOMEONE TO FOLLOW HIM WITH A WHEELCHAIR SHE REPORTS MONEY EXAMINER, THE PT WAS AT [facility] FOR STR AND THE PLAN IS FOR HIM TO RETURN SHE REPORTS HE IS A BED HOLD WITH THEM PT HAS A MOLST AND HCP ON FILE ALEXANDRE REPORTS THE PTS HCP WAS INVOKED A COUPLE OF DAYS AGO HOWEVER THE PLAN IS TO REVIEW REGULARLY TO DETERMINE IF PT HAS RETURNED TO [facility]US SHE DID PROVIDE A COPY OF THE INVOCATION WHICH WAS SCANNED INTO [facility] AND PUT IN PTS CHART IMM DELIVERED CURRENT DC PLAN IS RETURN TO [facility] VIA S
[2022-01-26 10:13] LABS: Mean Platelet Volume 12.2 fL (9.4-12.4); Platelet Count 64 X10*3/uL (160-400)
[2022-01-26 10:18] VITALS: BMI 21.9
[2022-01-26 12:00] VITALS: BP 126/55; PULSE 66; RESP 20; TEMP 36.5; O2SAT 97
--- NOTE | 2022-01-26 14:02 | MHC.SL.SWA ---
Addendum entered and electronically signed by Michelle Tinajero MA, [facility]-PROCEDURES RN 01/26/22 18:22: D.S. Original Note: Speech Pathologist Impression:Dysphagia Risk of Aspiration Due to: Hx pnemonia and stroke Dysphasia Diet Status: Pending MBSS results Liquid Consistency and Strategies for Safe Swallow: Pending MBSS Solid Food Consistency: Dietary Recommendations: Pending MBSS Additional Modifications to Solid Foods: PROCEDURES RN recommended MBSS. Pt is currently in process of MBSS and dietary recommendations are pending that study. Oral Medication Intake: Pending MBSS Please contact the pharmacy regarding appropriate crushable or liquid drug formulations that are available whenever modified delivery is recommended. Compensatory Strategies and Precautions to be Taken for Safe Swallow: Sitting Upright (90 deg) Foods to Avoid: Per daughter's report, avoid the following as they don't agree with him : cranberry juice, apple sauce, orange juice Recommendation for Speech: Further Testing Needed Outpatient Speech Therapy Inpatient Speech Therapy Modified Barium Swallow Study - Inpatient Modified Barium Swallow Study - Outpatient Comment: MBSS is recommended d/t hx of pneumonia, possible aspiration, mucus buildup, coughing up sputum during bedside swallow eval this afternoon. PROCEDURES RN spoke directly with MD who put in referral for MBSS d/t inability to find safe consistency of liquids and solids for pt at bedside. Recommend NPO pending MBSS which will be performed today. PROCEDURES RN to update , RN, RD upon MBSS results later today. Credentialing Manager Clinican/Clinical Fellow: Yes: Lisseth Rodriguez M.A., CF-PROCEDURES RN Supervisory Statement: I have reviewed and agree with the student/clinical fellow's documentation: Speech Language Pathologist:
--- NOTE | 2022-01-26 14:04 | HO.PM.IMPN ---
Subjective Subjective Date of Service: 01/26/22 Interval History: seen and examined this morning follow up for dysphagia, aspiration pneumonia alert and oriented this morning denies shortness of breath Review of Systems Review of Systems: Yes all other systems are reviewed and are negative Constitutional Constitutional: Denies chills and Denies fever(s) ENT Ears, Nose, Mouth, and Throat: Denies dizziness Cardiovascular Cardiovascular: Denies chest pain and Denies dyspnea Respiratory Respiratory: Denies dyspnea Gastrointestinal Gastrointestinal: Denies abdominal pain Neurologic Neurologic: Denies dizziness Physical Exam Vital Signs: Vital Signs: Last Vital Signs Temp 97.7 F 01/26/22 12:00 Pulse 66 01/26/22 12:00 Resp 20 01/26/22 12:00 BP 126/55 L 01/26/22 12:00 Pulse Ox 97 01/26/22 12:00 O2 Del Method 01/26/22 12:00 BMI result Body Mass Index 21.9 Const: General: cooperative and no acute distress Nutritional Appearance: average body habitus Orientation/consciousness: oriented to person and oriented to place Resp: Effort & Inspection: normal respiratory effort and able to speak in complete sentences Auscultation: diminished lung sounds Cardio: Rate: regular rate Heart sounds: S1 normal heart sound present and S2 normal heart sound present GI: Inspection: No distended Palpation (GI): Soft to palpation and nontender Neuro: Other: grossly non-focal General: oriented to person and oriented to place Extrem: General: Yes no pedal edema Objective Data Active Medications Apixaban (Apixaban 5 Mg Tablet) 5 mg PO BID [facility] Last Admin: 01/26/22 08:07 Dose: 5 mg Documented By: THANIA Aspirin (Aspirin Enteric Coated 81 Mg Tablet.Dr) 81 mg PO DAILY [facility] Last Admin: 01/26/22 08:07 Dose: 81 mg Documented By: THANIA Benzonatate (Benzonatate 100 Mg Capsule) 100 mg PO TID PRN PRN Reason: Cough Dexamethasone (Dexamethasone 0.5 Mg Tablet) 0.5 mg PO DAILY [facility] Last Admin: 01/26/22 08:19 Dose: 0.5 mg Documented By: THANIA Dextrose (D5w) 1,000 mls @ 125 mls/hr IVCONT .Q8H [facility] Last Admin: 01/26/22 11:08 Dose: 125 mls/hr Documented By: THANIA Piperacillin Sod/Tazobactam (Sod 3.375 gm/ Sodium Chloride) 50 mls @ 100 mls/hr IV Q6H [facility] Last Infusion: 01/26/22 12:01 Dose: 100 mls/hr Documented By: THANIA Losartan Potassium (Losartan Potassium 50 Mg Tablet) 50 mg PO DAILY [facility]; Protocol Last Admin: 01/26/22 08:06 Dose: 50 mg Documented By: THANIA Melatonin (Melatonin 3 Mg Tablet) 6 mg PO BEDTIME PRN PRN Reason: Insomnia Non-Formulary Medication (Tafluprost (Pf) [Zioptan (Pf)]) 1 drop EYE-BOTH BEDTIME [facility] Omeprazole (Omeprazole 20 Mg Capsule.Dr) 20 mg PO DAILY@0630 [facility] Last Admin: 01/26/22 05:10 Dose: Not Given Documented By: MIGEL Non-Admin Reason: Patient Refused Ondansetron HCl (Ondansetron Hcl 4 Mg/2 Ml Vial) 4 mg IVPUSH Q8H PRN PRN Reason: Nausea and Vomiting Pharmacy Consult (Consult Rx Perform Med Rec) 1 each MISCELLANE ONCE PRN PRN Reason: Consult order Pravastatin Sodium (Pravastatin Sodium 40 Mg Tablet) 40 mg PO BEDTIME [facility] Last Admin: 01/26/22 00:12 Dose: 40 mg Documented By: MIGEL Sodium Chloride (0.9 % Sodium Chloride Flush 3 Ml Syringe) 3 ml IVFLUSH QSHIFT [facility] Last Admin: 01/26/22 08:07 Dose: 3 ml Documented By: THANIA Timolol Maleate (Timolol Maleate 0.5 % Oph Tracy 5 Ml Drbtl) 1 drop EYE-BOTH BEDTIME [facility] Last Admin: 01/26/22 00:13 Dose: 1 drop Documented By: MIGEL Labs CBC & Chem 7: 01/26/22 08:55 01/26/22 08:55 Labs: Laboratory Results - last 24 hr 01/25/22 01/25/22 01/25/22 14:01 14:01 17:31 MCV MCH MCHC RDW Plt Count MPV Absolute Nucleated RBC Nucleated RBC % (auto) Anion Gap 22 H Estim Creat Clear Calc 53.9 Estimated GFR > 60 Random Glucose 109 Lactic Acid Lactic Acid F/U @ 2Hr 3.1 H* Lactic Acid F/U @ 4Hr 2.9 H* Calcium 8.5 Total Bilirubin Direct Bilirubin AST ALT Alkaline Phosphatase Total Protein Albumin 01/25/22 01/25/22 01/25/22 20:02 20:02 22:51 MCV MCH MCHC RDW Plt Count MPV Absolute Nucleated RBC Nucleated RBC % (auto) Anion Gap 16 Estim Creat Clear Calc 57.3 Estimated GFR > 60 Random Glucose 154 H D Lactic Acid 2.2 H* Lactic Acid F/U @ 2Hr 2.1 H* Lactic Acid F/U @ 4Hr Calcium 7.8 L D Total Bilirubin Direct Bilirubin AST ALT Alkaline Phosphatase Total Protein Albumin 01/26/22 01/26/22 01/26/22 01:32 08:55 08:55 MCV 90.2 MCH 28.0 MCHC 31.1 RDW 15.9 Plt Count 64 L D MPV 12.2 Absolute Nucleated RBC 0.000 Nucleated RBC % (auto) 0.0 Anion Gap 14 Estim Creat Clear Calc 58.5 Estimated GFR > 60 Random Glucose 161 H Lactic Acid Lactic Acid F/U @ 2Hr Lactic Acid F/U @ 4Hr 2.0 Calcium 7.6 L Total Bilirubin Direct Bilirubin AST ALT Alkaline Phosphatase Total Protein Albumin 01/26/22 08:55 MCV MCH MCHC RDW Plt Count MPV Absolute Nucleated RBC Nucleated RBC % (auto) Anion Gap Estim Creat Clear Calc Estimated GFR Random Glucose Lactic Acid Lactic Acid F/U @ 2Hr Lactic Acid F/U @ 4Hr Calcium Total Bilirubin 2.1 H Direct Bilirubin 1.2 H AST 124 H ALT 81 H Alkaline Phosphatase 989 H D Total Protein 5.2 L Albumin 2.6 L Microbiology Microbiology Results: Microbiology 01/25/22 11:04 Blood Culture - Preliminary Blood - Venous No growth after 24 hours. 01/25/22 11:04 Blood Culture - Preliminary Blood - Venous No growth after 24 hours. Assessment and Plan (1) Cancer of liver: Status: Acute (2) Transaminitis: Status: Acute (3) Hypernatremia: Status: Acute (4) Hypokalemia: Status: Acute (5) Pneumonia: Status: Acute Plan An 81 years old male with PMH of PE on Eliquis, CVA with left hemiparesis, dysphagia, liver cancers, HTN, BPH among other who presented to the hospital from [facility] with confusion and a fall. Sepsis secondary to aspiration pneumonia Leukocytosis, lactic acidosis and tachycardia. WBC trending up but lactic acidosis and tachycardia resolved CXR concerning for bilateral basal infiltrate BS masses Continue IV Zosyn seen by speech - rec MBSS Blood cultures negative to date Currently Metabolic encephalopathy 2/2 Hypernatremia secondary to dehydration and sepsis improving Hypernatremia Sodium of 156 at time of admission, down to 146 Change from D5 to LR Follow BMP closely Transaminitis Likely secondary to sepsis and liver cancer To repeat values after starting treatment and monitor closely trending down slightly Hypokalemia Potassium of 3.1 from decreased oral intake replace and follow BMP Liver cancer Not on any active treatment at this point Family open to discuss goals of care Outpatient follow up with Dr. Vieyra at [facility] Elevated troponin trops flat likely demand related. no chest pain will repeat EKG Hypertension continue losartan h/o PE continue Eliquis DVT PPX Eliquis attending - dr. bhat Needs ongoing inpatient treatment for sepsis and hypernatremia pending final blood cultures to prevent possible decompensation to severe sepsis. Quality Stroke Does the patient have a stroke diagnosis?: No VTE Prior VTE?: No VTE Risk Level:: Medical - moderate - high VTE Device Contraindication: Treatment Not Indicated VTE Drug Contraindication: N/A - Med Ordered
[2022-01-26] MEDS: Lactated Ringers 1,000 ML 80 ML IVCONT (14:53)
[2022-01-26 15:14] VITALS: BP 143/63; PULSE 71; RESP 17; TEMP 36.3; O2SAT 96
--- NOTE | 2022-01-26 16:57 | MHC.SL.IMP ---
Date of Plan of Treatment: 01/26/22 Onset of Symptoms/Illness: 11/25/21 Date Treatment Started: 01/26/22 Admitting Diagnosis: Dehydration, hypernatremia, hypokalemia, PNA, elevated troponin, cancer of liver, sepsis Primary Speech & Language Diagnosis: R13.12 Oropharyngeal Phase Dysphagia Reason for Today's Visit: 72069 Modified Barium Swallow Study Pre-evaluation Dietary Consistencies: Grnd/Mech Altered (NDD2) Pre-evaluation Liquid Consistency: [place] Thick Pre-evaluation Medication Administration: Crushed with Puree HISTORY: Modified Barium Swallow Study Fluoroscopic Evaluation of Swallowing Function CPT Code 97521 Evaluation Year: 2021 Reason for Study: Patient displays overt s/s of aspiration. Referring Physician: Misa NI Evaluating Clinician: Michelle Tinajero MA, [facility] Study Number: 1 Patient Name: Spike Zuniga Status: Inpatient, Stretcher Age: 81 Gender: Male MEDICAL HISTORY: Year of Onset or Diagnosis: 2021 Comorbidities: Cancer of liver CVA Hemiparesis/hemiplegia of the left side Pulmonary embolism Dysphagia Pneumonia Malignant neoplasm of the liver Hypertension Hyperlipidemia Glaucoma BPH Current (pre-evaluation) Intake/Diet: Route: PO Diet Grade: Mechanical Soft Liquid Consistencies: [place] Pre-Study Functional Oral Intake Scale (FOIS): 5- Total oral intake of multiple consistencies requiring special preparation SUBJECTIVE: Pt is an 81 year old male brought to the hospital from [facility], there for short term rehab and being treated for pneumonia. Pt is being now admitted to [facility] for treatment of sepsis and hypernatremia. Per chart review, pt refused dinner last night, stating he did not want to eat or drink. Pt?s family reports pt has been consistently losing weight the last few months and his appetite has been very low. Per [employer] of [facility], pt arrived at their facility with recommendation for ground/mechanically altered solids (NDD2) and nectar thick liquids. [employer] from retirement also reported ?[facility] staff have seen a decrease in PO overall, mental status change and that pt ?appeared dehydrated? and was ?overwhelmed by sight of food on plate.? [employer] reported that [employer] introduced idea of PEG and IV fluids earlier this week. [employer] reported recent chemotherapy affecting his current status.? Pt reportedly lives home with his and was previously receiving VNA services from [facility]. 01/[address]: ?Generalized atrophy and nonspecific periventricular white matter disease. Left occipital and right subcortical white matter frontal infarcts similar to October 2021 exam. Small focus of intraparenchymal hemorrhage in the left posterior centrum semiovale is no longer seen.? 01/25 Chest X-Ray: ?FINDINGS: There are areas of parenchymal density seen lateral aspect of both lungs which may be related to pneumonitis however lung masses cannot be excluded. No definite hilar abnormalities appreciated. Heart normal size. No evidence of pulmonary edema. There appears to be a small right pleural effusion and minimal left posterior sulcus blunting which may represent a tiny effusion. No pneumothorax is identified. There is calcification of the anterior longitudinal ligament throughout the thoracic spine. XR/XR chest 2V IMPRESSION: Bilateral regions of parenchymal density which may be related to pneumonia however lung mass not excluded.? Oral Motor Exam Facial Symmetry: Symmetrical Facial Movement: Controlled Mouth Occlusion: Normal Oral-Facial Teeth Characteristics: Partially Missing, Spaces Oral-Facial Lip Pucker Description: Reduced ROM Oral-Facial Smile (Lips) Description: Normal Oral-Facial Puff Cheeks Description: Reduced Strength Tongue Size: Normal Tongue Excursion Description: Normal Tongue Range of Movement Description: Reduced Tongue Speed of Movement Description: Reduced Tongue Strength of Movement (against opposing pressure): Reduced Tongue Movement Characteristics: Normal/Absent Is patient able to produce volitional cough?: Yes Food and Liquid Trials: Oral Impairment: Lip Closure: 0=No labial escape Oral Impairment: Tongue Control During Bolus Hold: 1=Escape to lateral buccal cavity/floor of mouth (FOM) Oral Impairment: Bolus Preparation/Mastication: Did not test Oral Impairment: Bolus Transport/Lingual Motion: 3=Repetitive/disorganized tongue motion Oral Impairment: Oral Residue: 2=Residue collection on oral structures Oral Impairment:Initiation of Pharyngeal Swallow: 3=Bolus head in pyriforms Pharyngeal Impairment: Soft Palate Elevation: 1=Trace column of contrast or air between SP and PW Pharyngeal Impairment: Laryngeal Elevation: 2=Minimal superior movement of thyroid cartilage (see description) Pharyngeal Impairment: Anterior Hyoid Excursion: 2=No anterior movement Pharyngeal Impairment: Epiglottic Movement: 2=No inversion Pharyngeal Impairment: Laryngeal Vestibular Closure:: 1=Incomplete: narrow column air/contrast in laryngeal vestibule Pharyngeal Impairment: Pharyngeal Stripping Wave: 2=Absent Pharyngeal Impairment: Pharyngeal Contraction: Did not test Pharyngeal Impairment: Pharyngoesophageal Segment Openin=Partial distention/partial duration: partial obstruction of flow Pharyngeal Impairment: Tongue Base (TB) Retraction: 2=Narrow column of contrast/air between TB and posterior PW Pharyngeal Impairment: Pharyngeal Residue: 4=Minimal to no pharyngeal clearance Pharyngeal Impairment: Esophageal Clearance Upright Position: Did not test Impressions and Recommendations Clinical Observations: OBJECTIVE: Time-out: performed at 02:45 Evaluation Start: 02:30; Stop: 02:40 Patient Positioning: Seated 70-90 degrees Viewing Planes: LATERAL ONLY Contrast: MBSImP? Standardized Protocol using commercially prepared, standardized Barium viscosities, including: Varibar? THIN LIQUID (40% w/v, <15 cps) , Varibar? NECTAR (40% w/v, <150-450 cps) , Varibar? THIN HONEY (40% w/v, <800-1800 cps) MBSImP ID: [id number] MBSImP Results: Lip closure for intraoral bolus containment resulted in no labial escape. Tongue control during bolus hold allowed bolus escape to the lateral buccal cavity/floor of mouth. Bolus preparation and mastication received the highest impairment score; solid not given due to patient safety concerns related to oral impairment. Bolus transport/lingual motion was with repetitive/disorganized motion of the tongue. Oral residue was a collection on oral structures. Initiation of the pharyngeal swallow occurred when the bolus head was in the pyriform sinuses. Soft palate elevation allowed a trace column of contrast or air between the soft palate and the pharyngeal wall. Laryngeal elevation was incomplete, as indicated through minimal superior movement of the thyroid cartilage with minimal approximation of the arytenoids to the epiglottic petiole. Anterior hyoid excursion demonstrated no movement. Epiglottic movement resulted in no inversion. Laryngeal vestibular closure was incomplete, with a narrow column of air/contrast noted within the laryngeal vestibule at the height of the swallow. Pharyngeal contraction could not be determined due to logistical reasons not related to physiologic impairment. Pharyngoesophageal segment opening demonstrated partial distension/partial duration, with partial obstruction of bolus flow. Tongue base retraction allowed a narrow column of contrast or air between the retracted tongue base and the posterior pharyngeal wall. Pharyngeal residue resulted from minimal to no pharyngeal clearance. Esophageal clearance in the upright position could not be assessed due to logistical reasons not related to physiologic impairment. Oral Impairment Score: 12 Pharyngeal Impairment Score: 17 (absence of score, component 13) Esophageal Impairment Score: --- (absence of score, component 17) Laryngeal Penetration and Aspiration: Both Penetration and Aspiration were observed in today's study. Thin Contrast entered the airway, contacted the vocal folds, and was not ejected from the airway. [place]-thick Contrast entered the airway, passed below the vocal folds, and no effort was made to eject. Structural Abnormalities Noted: Cervical osteophytes impeding bolus flow ASSESSMENT: Clinician Assessment: This exam was conducted by a multidisciplinary team, included a speech pathologist, radiologist, and radiology special procedure tech. Pt was seated upright at 90 degree angle in a chair for this exam. Pt trialed the following liquid and solid consistencies: 5 mL thin liquid, nectar thick liquid by teaspoon, honey thick liquid by teaspoon, pureed solid (mixture applesauce with barium paste). Pt presents with severe oropharyngeal dysphagia. Moderate to severe impairments of the oral phase. Adequate lip closure with no interlabial escape. Poor tongue control and difficulty with bolus formation. There was escape of bolus to the floor of mouth, characteristic tongue pumping movements. Pt?s tongue rocked with anterior to posterior motions repetitively. There was mild residue coating the tongue. Pt presented with severe impairments of the pharyngeal phase of the swallow. Significant delay of pharyngeal swallow trigger, initiated as bolus head reached pyriform sinuses. There was trace column of contrast between the soft palate and pharyngeal wall. Minimal superior movement of the thyroid cartilage with no anterior hyoid displacement and no epiglottic inversion. Incomplete laryngeal vestibular closure resulting in episodes of aspiration and penetration. There was minimal pharyngeal clearance, narrowing below the pyriform sinuses noted by radiologist. Radiologist also noted osteophytes potentially impeding bolus flow through the pharynx. With trial of thin liquid, trace amount of contrast entered the airway during the swallow, reaching vocal folds with residuals lingering on vocal folds. Pt did not produce spontaneous protective cough with tracheal penetration. Pt was instructed to produce a volitional cough, which did not clear trace residuals from the trachea. It is likely pt eventually aspirated on this trace residual. Minimal retention of thin contrast in the pyriform sinuses. With trials of honey thick liquid and pureed solids alike, there was no evidence of aspiration or penetration during this exam. However, with minimal pharyngeal clearance. Contrast collected in the valleculae and pyriform sinuses, on posterior pharyngeal wall, and minimally cleared despite trialing of various compensatory strategies. Pt was instructed to perform a chin tuck, but was unable to hold this position. Pt was instructed for multiple swallows, effortful swallow. Pt produced 4+ effortful dry swallows. This was minimally effective in reducing residuals. Pt then produced repetitive throat clearing and cough response. Pt was instructed to swallow again after clearing his throat. Pt did not swallow again, instead expectorating and spitting out the contrast into a bag. This appears to be pt?s habitual response. Although there was no aspiration or penetration with these consistencies, pt is at risk for aspiration after the swallow on residuals. Pt was provided with significant cues for strategies, exhibited significant difficulty clearing residuals nevertheless. When offered ground chicken trial, pt refused, stating he would not be able to swallow. With trial of nectar thick liquid by betsy, there was tracheal aspiration during the swallow. No spontaneous protective cough. Minimal to moderate retention in the valleculae and pyriform sinuses. The following compensatory strategies have not been used until today's study, but when employed, improved swallowing function: Additional Swallow(s) per Bolus decreased Pharyngeal Residue Effortful Swallow (used during PO intake) decreased Pharyngeal Residue The following compensatory strategies appear to have had a negative impact on swallowing function: [place]-thick Liquid increased Aspiration Honey-thick Liquid increased Pharyngeal Residue Liquid Intake Recommendation: PARTIAL PO Dietary Recommendations: PARTIAL PO Medication Administration: Please contact the pharmacy regarding appropriate crushable or liquid drug formulations that are available whenever modified delivery is recommended. Compensatory Strategies Recommended: Sitting Upright (90 deg) Supervision during eating and or drinking: PO with [employer] Recommendation for Speech Therapy: Inpatient Speech Therapy Speech Therapy through Rehab Facility PLAN: Intake Recommendations: Route: Partial PO/Partial Alternate Diet Grade: Puree Liquid Consistencies: Honey Post-Study Functional Oral Intake Scale (FOIS): 2- dependent with minimal/inconsistent oral intake This exam revealed aspiration and penetration with intake of thin liquids and nectar thick liquids. There was no aspiration during this exam with intake of thicker textures, however, there was notable retention. Pt trialed strategies for improved pharyngeal clearance, but was unable to swallow residuals. Ultimately pt coughed to expectorate and spit out pharyngeal residuals. This appears to be an effortful, but habitual response from the pt. With the presence of significant pharyngeal retention and difficulty clearing these residuals, pt is at risk for aspiration on residuals after the swallow. Additionally, concern lies in pt?s ability to maintain adequate nutrition w/ inability to clear and habitual expectoration of PO. Safest recommendation based on this exam alone appears to be an alternative means of nutrition if deemed an appropriate option for the pt by his medical team, w/ Partial PO when working with speech pathologist or for supplemental/pleasure feeding (pureed solids/honey thick liquids 1/2 teaspoon amounts). Recommend consult with MD, Gastroenterology, and Nutrition services to assess for candidacy of alternative means of nutrition. Pt is at increased risk for aspiration. Pt and his family must have knowledge and understanding of risks of aspiration. Ultimate decision for nutritional intake is to be made by the patient, his caregiver/family, and his medical team with consideration of the totality of the patient, other concomitant conditions, and overall quality of life. With any decision made, recommend continue with strict oral care routine (at least 4 times daily) and elevate head of bed at least 30 degrees to reduce risk of microaspiration. Recommend continue speech therapy for dysphagia treatment during hospitalization and at next level of care. Recommend a follow-up MBSS post-treatment. Suggested Referrals: The patient might benefit from a referral to: Gastroenterology Nutrition Services Therapy Recommendations: Therapy will be continued Prognosis for Improvement: The prognosis for the patient to meet nutritional needs by mouth is poor based on degree of impairment. Nursing Home Goals: ? The patient and/or family will participate in further education for swallowing goals. Short Term Goals: ? Diet - The patient will participate in therapeutic PO trials with the [employer] pureed solid/honey thick liquid. ? Guidelines - The patient will comply with/recall the following guidelines/strategies 80% of the time with maximum cuing: -Honey-thick -Liquid, Bolus Volume Change -Rate of Ingestion Change -Additional Swallow(s) per Bolus/Effortful Swallow (used during PO intake) -Throat Clear, Cough Volitional -Upright position during PO intake and for at least 45 minutes after PO intake ? Education - The patient, family, caregiver will verbalize/demonstrate understanding of the results of this evaluation, the above recommendations, and the swallowing guidelines. Clinician - Supplemental, Miscellaneous Communication: It is important to note MBSS objective studies are snapshots in time and Patient function might vary with factors such as time of day or concomitant medical conditions. For this reason, the final treatment plan for this patient should rest with their medical care team. Additional recommendations should be considered with the totality of the Patient in mind. Thank for the opportunity to participate in the care of this patient. If you have any questions about the content of this report, please contact the [facility] at [facility]. Newspaper Distributor Supervisor Clinician/Clinical Fellow: No Supervisory Statement: N/A Speech Language Pathologist: Michelle Tinajero M.A., CCC-[employer]
[2022-01-26] MEDS: Potassium Chloride Packet 20 MEQ PACKET 40 MEQ PO (17:06)
[2022-01-26 19:58] VITALS: BP 135/67; PULSE 67; RESP 18; TEMP 36.5; O2SAT 96
[2022-01-27] VITALS (7 sets, daily range): BP systolic 128–181; BP diastolic 61–71; PULSE 59–90; RESP 16–18; TEMP 36.2–37.1; O2SAT 95–98
[2022-01-27] MEDS: Lactated Ringers 1,000 ML 80 ML IVCONT (02:18)
[2022-01-27] MEDS: Piperacillin Sodium/Tazobactam 3.375 GM in 0.9 % Sodium Chloride 50 ML IV (05:20)
[2022-01-27 06:14] LABS: Hematocrit 32.7 % (42.0-52.0); Hemoglobin 10.5 g/dl (14.0-18.0); Mean Corpuscular HGB Conc 32.1 g/dl (31.0-36.0); Mean Corpuscular Hemoglobin 28.5 pg (27.0-33.0); Mean Corpuscular Volume 88.9 fL (80.0-98.0); Mean Platelet Volume 12.3 fL (9.4-12.4); Red Blood Count 3.68 X10*6/uL (4.60-5.80); Red Cell Distribution Width 15.8 % (11.0-16.0); White Blood Count 12.8 X10*3/uL (4.8-10.8)
[2022-01-27 06:19] LABS: Platelet Count 55 X10*3/uL (160-400)
[2022-01-27 07:09] LABS: Anion Gap 13 (12-20); Blood Urea Nitrogen 28 mg/dL (9-16); Calcium 7.5 mg/dL (8.4-10.2); Carbon Dioxide 28 mmol/L (22-29); Chloride 107 mmol/L (96-108); Creatinine Clr Calc Pharmacy 76.4; Estimated Glomerular Filt Rate > 60; Glucose Random 98 mg/dL (60-115); Potassium 2.8 mmol/L (3.3-5.1); Sodium 145 mmol/L (135-145)
[2022-01-27] MEDS: Potassium Chloride/H20 10 MEQ/100 ML PIGGYBACK 100 MEQ IV ×4 (07:37→13:03)
[2022-01-27 08:07] LABS: Magnesium 1.7 mg/dL (1.6-2.6)
--- NOTE | 2022-01-27 09:41 | MHC.CM.PN ---
CM met with Patient's Daughter/HCP/ALEXANDRE to discuss dc planning and various questions. At this time, Patient is on a private pay bed hold at [facility]; CM will continue to follow for possible need to adjust the dc plan.
[2022-01-27] MEDS: Dextrose 5 % and 0.45 % NaCl 1,000 ML 100 ML IVCONT ×2 (10:35→20:30)
[2022-01-27] MEDS: hydrALAZINE HCl 20 MG/ML VIAL 5 MG IVPUSH (10:38)
[2022-01-27] MEDS: cefTRIAXone sodium 1 GM in 0.9 % Sodium Chloride 50 ML IV (10:41)
--- NOTE | 2022-01-27 11:16 | MHC.SL.DTX ---
Dysphagia Diet modifications: Last documented Solid diet consistencies: NPO Last documented Liquid consistency: NPO Last documented Medication Administration:Crushed with Puree Changes made to current diet?: Liquid Consistency and Strategies: Liquid Intake Recommendation: PARTIAL PO Compensatory Strategies for Safe Swallow: Compensatory Strategies for Safe Swallow(b): Sitting Upright (90 deg) Double Swallow Liquids from Cup Small Bites and Sips Alternate Liquids/Solids Rate of Ingestion Change Solid Food Consistency: Dietary Recommendations: PARTIAL PO/PO with [facility] only, NPO pending alternative feeding method Additional Modifications to Solids: Oral Medication Intake: Crushed with Puree Strategies and Precautions to be Taken for Safe Swallow: Sitting Upright (90 deg) Double Swallow Liquids from Cup Small Bites and Sips Alternate Liquids/Solids Rate of Ingestion Change Supervision While Eating and/Drinking: PO with [facility] Foods to Avoid: Per daughter's report, avoid the following as they don't agree with him : cranberry juice, apple sauce, orange juice Swallowing Recommended Treatments: Compens. Strategy Educat. Level of Impact on: Daily activities: Severe Interpersonal interactions: Education: Employment: Community: Moderate Prognosis for Improvement: Fair Recommendation for Speech: Inpatient Speech Therapy Speech Therapy through Rehab Facility Comment: PLAN: Intake Recommendations: Route: Partial PO/Partial Alternate Diet Grade: Puree Liquid Consistencies: Honey Post-Study Functional Oral Intake Scale (FOIS): 2- dependent with minimal/inconsistent oral intake This exam revealed aspiration and penetration with intake of thin liquids and nectar thick liquids. There was no aspiration during this exam with intake of thicker textures, however, there was notable retention. Pt trialed strategies for improved pharyngeal clearance, but was unable to swallow residuals. Ultimately pt coughed to expectorate and spit out pharyngeal residuals. This appears to be an effortful, but habitual response from the pt. With the presence of significant pharyngeal retention and difficulty clearing these residuals, pt is at risk for aspiration on residuals after the swallow. Additionally, concern lies in pt?s ability to maintain adequate nutrition w/ inability to clear and habitual expectoration of PO. Safest recommendation based on this exam alone appears to be an alternative means of nutrition if deemed an appropriate option for the pt by his medical team, w/ Partial PO when working with speech pathologist or for supplemental/pleasure feeding (pureed solids/honey thick liquids 1/2 teaspoon amounts). Recommend consult with MD, Gastroenterology, and Nutrition services to assess for candidacy of alternative means of nutrition. Pt is at increased risk for aspiration. Pt and his family must have knowledge and understanding of risks of aspiration. Ultimate decision for nutritional intake is to be made by the patient, his caregiver/family, and his medical team with consideration of the totality of the patient, other concomitant conditions, and overall quality of life. With any decision made, recommend continue with strict oral care routine (at least 4 times daily) and elevate head of bed at least 30 degrees to reduce risk of microaspiration. Recommend continue speech therapy for dysphagia treatment during hospitalization and at next level of care. Recommend a follow-up MBSS post-treatment. Suggested Referrals: The patient might benefit from a referral to: Gastroenterology Nutrition Services Therapy Recommendations: Therapy will be continued Prognosis for Improvement: The prognosis for the patient to meet nutritional needs by mouth is poor based on degree of impairment. M[facility] Goals: ? The patient and/or family will participate in further education for swallowing goals. Short Term Goals: ? Diet - The patient will participate in therapeutic PO trials with the [facility] pureed solid/honey thick liquid. ? Guidelines - The patient will comply with/recall the following guidelines/strategies 80% of the time with maximum cuing: -Honey-thick -Liquid, Bolus Volume Change -Rate of Ingestion Change -Additional Swallow(s) per Bolus/Effortful Swallow (used during PO intake) -Throat Clear, Cough Volitional -Upright position during PO intake and for at least 45 minutes after PO intake ? Education - The patient, family, caregiver will verbalize/demonstrate understanding of the results of this evaluation, the above recommendations, and the swallowing guidelines. Frequency/Duration: Date Range for Service Req: Timeline to reassess: Additional Comments: Following MBSS completed 01/26/22, patient recommended for Partial PO/Alternative feeding due to severe oral pharyngeal dysphagia Treatment: Patient and Daughter seen this morning for Dysphagia consult/education. Discussed results and recommendations from MBSS study completed yesterday afternoon. Recommendation is for patient to be NPO pending Alternative Feeding Method to be determined by medical decision made by patient and family. [facility] will continue to trial PO as partial feeding, provide swallowing strategies and regularly re-assess swallow. Discussed detail of study and implications with patient and daughter. Daughter requested copy of evaluation which was provided. Patient evidenced understanding of evaluation results and plan, but had little comment. Daughter brought up some medical concerns related to PEG placement and was referred to INFECTION PREVENTION PRACTITIONER/GI for these specific issues. [facility] will continue to follow Assessment: Repair Order Clerk Clinican/Clinical Fellow: No Supervisory Statement: I have reviewed and agree with the student/clinical fellow's documentation: N/A Speech Language Pathologist: Jazzy Gibbs M.A., [facility]
[2022-01-27] MEDS: metroNIDAZOLE/NS 500 MG/100 ML PIGGYBACK 100 MG IV ×2 (11:44→19:12)
[2022-01-27 12:02] LABS: Troponin-I High Sensitivity 66.7 ng/L (<3.5-35.0)
--- NOTE | 2022-01-27 12:13 | P.PNIM_ITS ---
Subjective Subjective Date of Service: 01/27/22 Interval History: seen and examined this morning follow up for aspiration pneumonia s/p MBSS yesterday, Unable to find consistency of food without aspiration denies fever, chills, SOB Review of Systems Review of Systems: Yes all other systems are reviewed and are negative Constitutional Constitutional: Denies chills and Denies fever(s) Cardiovascular Cardiovascular: Denies chest pain, Denies palpitations and Denies dyspnea Respiratory Respiratory: Reports cough and Denies dyspnea Gastrointestinal Gastrointestinal: Denies abdominal pain, Denies nausea and Denies vomiting Endocrine Endocrine: Denies palpitations Physical Exam Vital Signs: Vital Signs: Last Vital Signs Temp 98.2 F 01/27/22 11:04 Pulse 79 01/27/22 11:04 Resp 16 01/27/22 11:04 BP 145/67 H 01/27/22 11:04 Pulse Ox 96 01/27/22 11:04 O2 Del Method 01/27/22 11:04 BMI result Body Mass Index 21.9 Const: General: cooperative and no acute distress Nutritional Appearance: average body habitus Orientation/consciousness: oriented to person and oriented to place Resp: Effort & Inspection: normal respiratory effort and able to speak in complete sentences Auscultation: diminished lung sounds Cardio: Rate: regular rate Heart sounds: S1 normal heart sound present and S2 normal heart sound present GI: Inspection: No distended Palpation (GI): Soft to palpation and nontender Neuro: General: oriented to person and oriented to place Extrem: Other: left side weakness General: Yes no pedal edema Objective Data Active Medications Apixaban (Apixaban 5 Mg Tablet) 5 mg PO BID [facility] Last Admin: 01/27/22 08:51 Dose: Not Given Documented By: THANIA Non-Admin Reason: NPO Aspirin (Aspirin Enteric Coated 81 Mg Tablet.) 81 mg PO DAILY [facility] Last Admin: 01/27/22 08:51 Dose: Not Given Documented By: THANIA Non-Admin Reason: NPO Benzonatate (Benzonatate 100 Mg Capsule) 100 mg PO TID PRN PRN Reason: Cough Dexamethasone (Dexamethasone 0.5 Mg Tablet) 0.5 mg PO DAILY [facility] Last Admin: 01/27/22 08:51 Dose: Not Given Documented By: THANIA Non-Admin Reason: NPO Hydralazine HCl (Hydralazine Hcl 20 Mg/Ml Vial) 5 mg IVPUSH Q6H PRN; Protocol PRN Reason: SBP >180 Last Admin: 01/27/22 10:38 Dose: 5 mg Documented By: THANIA Dextrose/Sodium Chloride (D51/2ns) 1,000 mls @ 100 mls/hr IVCONT .Q10H [facility] Last Admin: 01/27/22 10:35 Dose: 100 mls/hr Documented By: THANIA Ceftriaxone Sodium 1 gm/ (Sodium Chloride) 50 mls @ 100 mls/hr IV Q24H [facility] Last Infusion: 01/27/22 11:52 Dose: 100 mls/hr Documented By: THANIA Metronidazole (Flagyl) 500 mg in 100 mls @ 100 mls/hr IV Q8H [facility] Last Admin: 01/27/22 11:44 Dose: 100 mls/hr Documented By: THANIA Losartan Potassium (Losartan Potassium 50 Mg Tablet) 50 mg PO DAILY [facility]; Protocol Last Admin: 01/27/22 08:51 Dose: Not Given Documented By: THANIA Non-Admin Reason: NPO Melatonin (Melatonin 3 Mg Tablet) 6 mg PO BEDTIME PRN PRN Reason: Insomnia Non-Formulary Medication (Tafluprost (Pf) [Zioptan (Pf)]) 1 drop EYE-BOTH BE DTIME [facility] Omeprazole (Omeprazole 20 Mg Capsule.Dr) 20 mg PO DAILY@0630 [facility] Last Admin: 01/27/22 05:21 Dose: Not Given Documented By: MOLLY Non-Admin Reason: unsafe for po meds Ondansetron HCl (Ondansetron Hcl 4 Mg/2 Ml Vial) 4 mg IVPUSH Q8H PRN PRN Reason: Nausea and Vomiting Pharmacy Consult (Consult Rx Perform Med Rec) 1 each MISCELLANE ONCE PRN PRN Reason: Consult order Pravastatin Sodium (Pravastatin Sodium 40 Mg Tablet) 40 mg PO BEDTIME [facility] Last Admin: 01/26/22 21:26 Dose: 40 mg Documented By: CHRISTINA Sodium Chloride (0.9 % Sodium Chloride Flush 3 Ml Syringe) 3 ml IVFLUSH QSHIFT [facility] Last Admin: 01/27/22 07:44 Dose: Not Given Documented By: THANIA Non-Admin Reason: IV Running Timolol Maleate (Timolol Maleate 0.5 % Oph Tracy 5 Ml Drbtl) 1 drop EYE-BOTH BEDTIME [facility] Last Admin: 01/26/22 21:30 Dose: 1 drop Documented By: CHRISTINA Labs CBC & Chem 7: 01/27/22 06:02 01/27/22 06:02 Labs: Laboratory Results - last 24 hr 01/27/22 01/27/22 06:02 06:02 MCV 88.9 MCH 28.5 MCHC 32.1 RDW 15.8 Plt Count 55 L MPV 12.3 Absolute Nucleated RBC 0.000 Nucleated RBC % (auto) 0.0 Anion Gap 13 Estim Creat Clear Calc 76.4 Estimated GFR > 60 Random Glucose 98 D Calcium 7.5 L Magnesium 1.7 Microbiology Microbiology Results: Microbiology 01/25/22 11:04 Blood Culture - Preliminary Blood - Venous No growth after 24 hours. 01/25/22 11:04 Blood Culture - Preliminary Blood - Venous No growth after 24 hours. Assessment and Plan (1) Cancer of liver: Status: Acute (2) Transaminitis: Status: Acute (3) Pneumonia: Status: Acute (4) Hypokalemia: Status: Acute (5) Sepsis: Status: Acute Plan An 81 years old male with PMH of PE on Eliquis, CVA with left hemiparesis, dysphagia, liver cancers, HTN, BPH among other who [facility] and a [facility]. Sepsis secondary to aspiration pneumonia Initially with eukocytosis, lactic acidosis and tachycardia. lactic acidosis and tachycardia resolved. WBC trending down CXR concerning for bilateral basal infiltrate BS masses Continue IV antibiotics s/p speech eval/MBSS Blood cultures negative to date dysphagia s/p speech evaluation and MBSS - unable to find safe consistency started discussion regarding feeding tube with patient and daughter (HCP) at bedside - they would like time to discuss -NPO -GI consult pending Thrombocytopenia Platelets decreasing since admission ? r/t to zosyn - stop zosyn and change to ceftriaxone/ Flagyl - hematology consult - follow CBC Metabolic encephalopathy 2/2 Hypernatremia secondary to dehydration and sepsis improving HCP was invoked at [facility] a few days before coming to the hospital due to confusion Hypernatremia Sodium of 156 at time of admission, down to 145 Follow BMP closely Transaminitis Likely secondary to sepsis and liver cancer fairly stable Hypokalemia/ hypomagnesemia Potassium down to 2.8 from decreased oral intake, mag 1.7 replace both IV follow BMP Liver cancer Not on any active treatment at this point Family open to discuss goals of care Outpatient follow up with Dr. Vieyra at [facility] Elevated troponin trops flat likely demand related. no chest pain Hypertension prn hydralazine losartan if able to take po h/o PE continue Eliquis h/o CVA left side weakness DVT PPX - Eliquis stage 2 pressure wound to cocyxx local wound care attending - dr. bhat Needs ongoing inpatient treatment for sepsis and hypernatremia pending final blood cultures to prevent possible decompensation to severe sepsis. Quality Stroke Does the patient have a stroke diagnosis?: No VTE Prior VTE?: No VTE Risk Level:: Medical - moderate - high VTE Device Contraindication: Treatment Not Indicated VTE Drug Contraindication: N/A - Med Ordered
--- NOTE | 2022-01-27 12:29 | MHC.CLN ---
F/U PT WITH INCREASED NUTRITION RISK R/T PRESSURE INJURY PT IS CURRENTLY NPO PER SCENE SHIFTER R/T RISK FOR ASPIRATION FAMILY DISCUSSING GOALS OF CARE REGARDING POSSIBLE PEG PLACEMENT CONSULT RD FOR ALTERNATIVE NUTRITION SUPPORT IF NEEDED
--- NOTE | 2022-01-27 12:35 | P.CNGI_ITS ---
History of Present Illness Data of Consult Service Date: 01/27/22 Requesting physician: Misa Gómez Primary Care Provider: Preet Stallings III, MD HPI Reason for consult: Dysphagia 81 YM with hx of PE on Eliquis, CVA with left hemiparesis, dysphagia, liver cancers, HTN, BPH seen at [facility] on 01/26/22 (Tx from [facility]) after an episode of confusion/syncope associated with a fall. Pt reported feeling weaker with poor PO intake over the last few weeks.? His reported that he went from halfway to the hospital when he was diagnosed with PE then went back to a different facility where he is staying right now.? She reports that he has been losing weight consistently for the last few months and his appetite was very low.? His metastatic liver cancer is not on any active treatment at this point.? Pt's family still want him to be full code but they are open to discuss other options. 01/26/22 Pt had a fall and became unresponsive with no reported head injury.? ER Course: Chest x-ray which showed an evidence of pneumonia versus mass.? Lab workup was consistent with hypernatremia and elevated liver enzymes.? Noticed to have leukocytosis with lactic acidosis. PT Admitted for further evaluation and treatment. IMAGING STUDIES: 01/26/22 BARIUM SWALLOW SHOWED: Aspiration with nectar consistency. Deep penetration with thin liquids. ? Diminished oral pharyngeal phase of swallow, with significantly limited posterior tilt of the epiglottis likely secondary to obstruction by a prominent anterior cervical osteophyte. Review of Systems Review of Systems: Having chills and reporting generalized weakness No chest pain, palpitation Coughing but denies feeling short of breath at rest No abdominal pain, nausea or vomiting No urinary symptoms Denies any rash or wounds Neurologic: Reports confusion Psychiatric: Psychiatric: Reports confusion PMFSH Past Medical History Medical History Cancer of liver CVA, old, hemiparesis Social History Social History Household Members: None Housing: Assisted Living Facility Alcohol intake: never Patient Tobacco Use Status: Never used Tobacco e-Cigarette/Vaping Use: Never Used Second Hand Smoke Exposure: No Advance Directives Date on File: 01/26/22 service: Yes Current occupational status: retired Meds Allergies Allergy/AdvReac Type Severity Reaction Status Date / Time brimonidine Allergy Unknown Unknown Verified 01/25/22 10:11 latanoprost Allergy Unknown Unknown Verified 01/25/22 10:11 Active Medications: Current Medications Apixaban (Apixaban 5 Mg Tablet) 5 mg PO BID [facility] Last Admin: 01/27/22 08:51 Dose: Not Given Aspirin (Aspirin Enteric Coated 81 Mg Tablet.) 81 mg PO DAILY [facility] Last Admin: 01/27/22 08:51 Dose: Not Given Benzonatate (Benzonatate 100 Mg Capsule) 100 mg PO TID PRN PRN Reason: Cough Dexamethasone (Dexamethasone 0.5 Mg Tablet) 0.5 mg PO DAILY [facility] Last Admin: 01/27/22 08:51 Dose: Not Given Hydralazine HCl (Hydralazine Hcl 20 Mg/Ml Vial) 5 mg IVPUSH Q6H PRN; Protocol PRN Reason: SBP >180 Last Admin: 01/27/22 10:38 Dose: 5 mg Dextrose/Sodium Chloride (D51/2ns) 1,000 mls @ 100 mls/hr IVCONT .Q10H [facility] Last Admin: 01/27/22 10:35 Dose: 100 mls/hr Ceftriaxone Sodium 1 gm/ (Sodium Chloride) 50 mls @ 100 mls/hr IV Q24H [facility] Last Infusion: 01/27/22 11:52 Dose: Infused Metronidazole (Flagyl) 500 mg in 100 mls @ 100 mls/hr IV Q8H [facility] Last Admin: 01/27/22 11:44 Dose: 100 mls/hr Magnesium Sulfate (Magnesium Sulfate/H2o) 2 gm in 50 mls @ 25 mls/hr IV ONCE ONE Stop: 01/27/22 14:33 Losartan Potassium (Losartan Potassium 50 Mg Tablet) 50 mg PO DAILY [facility]; Protocol Last Admin: 01/27/22 08:51 Dose: Not Given Melatonin (Melatonin 3 Mg Tablet) 6 mg PO BEDTIME PRN PRN Reason: Insomnia Non-Formulary Medication (Tafluprost (Pf) [Zioptan (Pf)]) 1 drop EYE-BOTH BEDTIME [facility] Omeprazole (Omeprazole 20 Mg Capsule.) 20 mg PO DAILY@0630 [facility] Last Admin: 01/27/22 05:21 Dose: Not Given Ondansetron HCl (Ondansetron Hcl 4 Mg/2 Ml Vial) 4 mg IVPUSH Q8H PRN PRN Reason: Nausea and Vomiting Pharmacy Consult (Consult Rx Perform Med Rec) 1 each MISCELLANE ONCE PRN PRN Reason: Consult order Pravastatin Sodium (Pravastatin Sodium 40 Mg Tablet) 40 mg PO BEDTIME [facility] Last Admin: 01/26/22 21:26 Dose: 40 mg Sodium Chloride (0.9 % Sodium Chloride Flush 3 Ml Syringe) 3 ml IVFLUSH QSHIFT [facility] Last Admin: 01/27/22 07:44 Dose: Not Given Timolol Maleate (Timolol Maleate 0.5 % Oph Tracy 5 Ml Drbtl) 1 drop EYE-BOTH BEDTIME [facility] Last Admin: 01/26/22 21:30 Dose: 1 drop Home Medications Medication Instructions Recorded Confirmed Last Taken Type dexamethasone 0.5 mg tablet 0.5 mg PO DAILY 01/25/22 01/25/22 Unknown History tafluprost (PF) 0.0015 % eye drops 1 drp ophthalmic (eye) BEDTIME 01/25/22 01/25/22 Unknown History in a dropperette (Zioptan (PF)) timolol maleate (PF) 0.5 % eye 1 drp ophthalmic (eye) BEDTIME 01/25/22 01/25/22 Unknown History drops in a dropperette Physical Exam Vital Signs: Vital Signs: Last Vital Signs Temp 98.2 F 01/27/22 11:04 Pulse 79 01/27/22 11:04 Resp 16 01/27/22 11:04 BP 145/67 H 01/27/22 11:04 Pulse Ox 96 01/27/22 11:04 O2 Del Method 01/27/22 11:04 BMI result Body Mass Index 21.9 Const: General: no acute distress and confusion Nutritional Appearance: average body habitus Orientation/consciousness: confusion Limitations: altered mental status HEENT: Head: Yes normal to inspection Ears: hearing grossly normal bilaterally Eyes: Sclerae: sclerae normal Pupils: Equal, round and reactive pupils present Neck: Neck: Yes normal visual inspection Chest: Chest palpation & inspection: normal inspection of the chest Resp: Effort & Inspection: normal respiratory effort Auscultation: clear to auscultation bilaterally Cardio: Palpation: normal PMI Rate: regular rate Rhythm: regular rhythm Heart sounds: S1 normal heart sound present, S2 normal heart sound present and no murmurs GI: Palpation (GI): Soft to palpation, nontender and No hepatosplenomegaly present Auscultation: normal bowel sounds Rectal Exam - Male: Yes deferred Skin: General skin exam: no rashes or lesions noted Neuro: General: gait normal, moves all extremities and confusion Cranial nerves: Yes Equal, round and reactive pupils present Psych: Appearance: grossly normal Mental Status: mental status grossly normal Results Labs CBC & Chem 7: 01/28/22 05:58 01/31/22 18:45 Labs: Short CBC 01/27/22 Range/Units 06:02 WBC 12.8 H (4.8-10.8) X10*3/uL Hgb 10.5 L (14.0-18.0) g/dl Hct 32.7 L (42.0-52.0) % Plt Count 55 L (160-400) X10*3/uL BMP 01/27/22 06:02 Sodium 145 Potassium 2.8 L Chloride 107 Carbon Dioxide 28 BUN 28 H Creatinine 0.72 Calcium 7.5 L Microbiology Microbiology Results: Microbiology 01/25/22 11:04 Blood - Venous Blood Culture - Preliminary No growth after 24 hours. 01/25/22 11:04 Blood - Venous Blood Culture - Preliminary No growth after 24 hours. Assessment and Plan (1) Cancer of liver: Status: Acute (2) Transaminitis: Status: Acute (3) Oropharyngeal dysphagia: Status: Acute Plan 81 YM with hx of PE on Eliquis, CVA with left hemiparesis, dysphagia, liver c ancers, HTN, BPH seen at [facility] on 01/26/22 (Tx from [facility]) after an episode of confusion/syncope associated with a fall. Pt reported feeling weaker with poor PO intake over the last few weeks.? His reported that he went from halfway to the hospital when he was diagnosed with PE then went back to a different facility where he is staying right now.? She reports that he has been losing weight consistently for the last few months and his appetite was very low.? His metastatic liver cancer is not on any active treatment at this point.? 01/26/22 Pt had a fall and became unresponsive with no reported head injury.? Lab workup was consistent with hypernatremia and elevated liver enzymes (likely related to liver cancer).? IMAGING STUDIES: 01/26/22 BARIUM SWALLOW SHOWED: Aspiration with nectar consistency. Deep penetration with thin liquids. ? Diminished oral pharyngeal phase of swallow, with significantly limited posterior tilt of the epiglottis likely secondary to obstruction by a prominent anterior cervical osteophyte. RECOMMENDATIONS: Pt was seen by speech therapy and nectar thick liquids/pureed diet was advised with strict aspiration precautions (since family refused feeding tube placement). Pt is being referred for hospice care Please reconsult GI if family wishes to proceed with PEG tube placement. Procedures Date of Service Date of Service: 01/27/22
[2022-01-27] MEDS: Magnesium Sulfate/H2O 2 GM/50 ML PIGGYBACK IV (13:03)
--- NOTE | 2022-01-27 13:43 | MHC.CM.PN ---
Per PA,Patyient & family are requesting a Hospice Informational; CM has made a referral to [facility] and await a response with date & time of Informational.
[2022-01-27] MEDS: Enoxaparin Sodium 80 MG/0.8 ML SYRINGE 70 MG SUBCUT (14:17)
--- NOTE | 2022-01-27 15:46 | P.CNHO_ITS ---
Subjective - Subjective Chief complaint: Weakness Consult date: 01/27/22 Primary Care Provider: Preet Stallings III, MD HPI - Consult Narrative Reason for consult: Thrombocytopenia Narrative: Spike Zuniga is a 81 year old male, resident of [facility] who has been admitted for probable aspiration pneumonia. He was sent by ambulance for syncopal episode on 01/25/2022. He has a recent diagnosis of primary liver cancer, he sees Oncology at [facility]. He has not yet started oral chemotherapy as per chart review. Patient is unable to provide any history. On admission his platelet count was 107 K, currently eats 55 K. He has been on Zosyn for aspiration pneumonia. Prior to that on 01/09/2022 his platelet counts were normal at 259 K. He has leukocytosis and normocytic anemia. He is on Lovenox for prophylaxis, he was on anticoagulation with Eliquis, this has been on hold. Review of Systems - Neurologic Denies dizziness Oncology Screenings - ECOG Performance Status ECOG Performance Status: 3 [facility] Medical History: Medical History (Last Reviewed 01/26/22 @ 02:32 by Agatha Levine RN) Cancer of liver CVA, old, hemiparesis Social History: Social History (Last Reviewed 01/25/22 @ 15:20 by Abbe Scott MD) Living Situation History: Household Members: None Housing: Assisted Living Facility Tobacco History: Patient Tobacco Use Status: Never used Tobacco e-Cigarette/Vaping Use: Never Used Second Hand Smoke Exposure: No Advance Directives: Advance Directives Date on File: 01/26/22 Occupation Assessmet: service: Yes Current occupational status: retired Home Medications and Allergies Current Medications: Current Medications Aspirin (Aspirin Enteric Coated 81 Mg Tablet.) 81 mg PO DAILY [facility] Last Admin: 01/27/22 08:51 Dose: Not Given Benzonatate (Benzonatate 100 Mg Capsule) 100 mg PO TID PRN PRN Reason: Cough Dexamethasone (Dexamethasone 0.5 Mg Tablet) 0.5 mg PO DAILY [facility] Last Admin: 01/27/22 08:51 Dose: Not Given Enoxaparin Sodium (Enoxaparin Sodium 80 Mg/0.8 Ml Syringe) 70 mg SUBCUT Q12H [facility] Last Admin: 01/27/22 14:17 Dose: 70 mg Hydralazine HCl (Hydralazine Hcl 20 Mg/Ml Vial) 5 mg IVPUSH Q6H PRN; Protocol PRN Reason: SBP >180 Last Admin: 01/27/22 10:38 Dose: 5 mg Dextrose/Sodium Chloride (D51/2ns) 1,000 mls @ 100 mls/hr IVCONT .Q10H [facility] Last Admin: 01/27/22 10:35 Dose: 100 mls/hr Ceftriaxone Sodium 1 gm/ (Sodium Chloride) 50 mls @ 100 mls/hr IV Q24H [facility] Last Infusion: 01/27/22 11:52 Dose: Infused Metronidazole (Flagyl) 500 mg in 100 mls @ 100 mls/hr IV Q8H [facility] Last Infusion: 01/27/22 13:08 Dose: Infused Losartan Potassium (Losartan Potassium 50 Mg Tablet) 50 mg PO DAILY [facility]; Protocol Last Admin: 01/27/22 08:51 Dose: Not Given Melatonin (Melatonin 3 Mg Tablet) 6 mg PO BEDTIME PRN PRN Reason: Insomnia Non-Formulary Medication (Tafluprost (Pf) [Zioptan (Pf)]) 1 drop EYE-BOTH BEDTIME [facility] Omeprazole (Omeprazole 20 Mg Capsule.Dr) 20 mg PO DAILY@0630 [facility] Last Admin: 01/27/22 05:21 Dose: Not Given Ondansetron HCl (Ondansetron Hcl 4 Mg/2 Ml Vial) 4 mg IVPUSH Q8H PRN PRN Reason: Nausea and Vomiting Pharmacy Consult (Consult Rx Perform Med Rec) 1 each MISCELLANE ONCE PRN PRN Reason: Consult order Pravastatin Sodium (Pravastatin Sodium 40 Mg Tablet) 40 mg PO BEDTIME [facility] Last Admin: 01/26/22 21:26 Dose: 40 mg Sodium Chloride (0.9 % Sodium Chloride Flush 3 Ml Syringe) 3 ml IVFLUSH QSHIFT [facility] Last Admin: 01/27/22 07:44 Dose: Not Given Timolol Maleate (Timolol Maleate 0.5 % Oph Tracy 5 Ml Drbtl) 1 drop EYE-BOTH BEDTIME [facility] Last Admin: 01/26/22 21:30 Dose: 1 drop Home Medications Medication Instructions Recorded Confirmed Type acetaminophen 325 mg tablet 650 mg PO Q6H PRN Pain 01/25/22 01/25/22 History apixaban 5 mg tablet 5 mg PO BID 01/25/22 01/25/22 History aspirin 81 mg tablet,delayed 1 tab PO DAILY 01/25/22 01/25/22 History release dexamethasone 0.5 mg tablet 0.5 mg PO DAILY 01/25/22 01/25/22 History losartan 50 mg tablet 50 mg PO DAILY 01/25/22 01/25/22 History lovastatin 40 mg tablet 1 tab PO BEDTIME 01/25/22 01/25/22 History melatonin 5 mg tablet 5 mg PO BEDTIME PRN Insomnia 01/25/22 01/25/22 History pantoprazole 40 mg tablet,delayed 40 mg PO DAILY 01/25/22 01/25/22 History release tafluprost (PF) 0.0015 % eye drops 1 drp ophthalmic (eye) BEDTIME 01/25/22 0 01/25/22 History in a dropperette (Zioptan (PF)) timolol maleate (PF) 0.5 % eye 1 drp ophthalmic (eye) BEDTIME 01/25/22 01/25/22 History drops in a dropperette Allergies Allergy/AdvReac Type Severity Reaction Status Date / Time brimonidine Allergy Unknown Unknown Verified 01/25/22 10:11 latanoprost Allergy Unknown Unknown Verified 01/25/22 10:11 Physical Exam Vital signs: Vital Signs Temp 98.2 F 01/27/22 11:04 Pulse 79 01/27/22 11:04 Resp 16 01/27/22 11:04 BP 145/67 H 01/27/22 11:04 Pulse Ox 96 01/27/22 11:04 O2 Del Method 01/27/22 11:04 Intake & Output 01/26/22 01/27/22 01/27/22 18:59 06:59 18:59 Intake Total 1581.250 / 2594.583 1013.333 / 2594.583 1600 / 1600 Output Total 0 / 400 400 / 400 200 / 200 Balance 1581.250 / 2194.583 613.333 / 2194.583 1400 / 1400 Urine Output (Average ml/kg/hr) 0.00 0.48 0.24 Intake: Intake, Oral Amount 0 / 0 Intake, IV Amount 1581.250 / 2594.583 1013.333 / 2594.583 1600 / 1600 Magnesium Sulfate/H2O 2 gm In 50 / 50 50 ml @ 25 mls/hr IV ONCE ONE Rx#:[id number] Piperacillin Sodium/Tazobactam 100 / 200 100 / 200 3.375 gm In 0.9 % Sodium Chloride 50 ml @ 100 mls/hr IV Q6H [facility] Rx#:[id number] Potassium Chloride/H20 10 meq 400 / 400 In 100 ml @ 100 mls/hr IV Q1H [facility] Rx#:[id number] cefTRIAXone sodium 1 gm In 0.9 50 / 50 % Sodium Chloride 50 ml @ 100 mls/hr IV Q24H [facility] Rx#: [id number] metroNIDAZOLE/NS 500 mg In 100 100 / 100 ml @ 100 mls/hr IV Q8H [facility] Rx#: [id number] Dextrose 5 % 1,000 ml @ 125 mls 1481.250 / 1481.250 /hr IVCONT .Q8H [facility] Rx#: [id number] Lactated Ringers 1,000 ml @ 80 913.333 / 622.143 9842 / 1000 mls/hr IVCONT .[id number] [facility] Rx#: [id number] Output: Output, Urine Amount 0 / 0 Output, Urine Amount (Catheter) 400 / 400 200 / 200 Urethral 400 / 400 200 / 200 Other: NPO Yes Yes Breakfast % Eaten 0% Lunch % Eaten 0% Number of Bowel Movements 0 Urine Color Gayla [place] Weight 69.5 kg Weight 69.5 kg - Constitutional Present: no acute distress, chronically ill appearing - Routine HEENT Exam Eye: Present: conjunctivae pale - Routine Neck Exam Absent: swelling - Routine Respiratory Exam Absent: accessory muscle use - Routine Cardiovascular Exam Cardiovascular: Present: S1, S2 - Routine Neurological Exam Present: altered mental status Hem/Onc Consult Result - Labs CBC & Chem 7: 01/27/22 06:02 01/27/22 15:09 Labs: Short CBC 01/27/22 Range/Units 06:02 WBC 12.8 H (4.8-10.8) X10*3/uL Hgb 10.5 L (14.0-18.0) g/dl Hct 32.7 L (42.0-52.0) % Plt Count 55 L (160-400) X10*3/uL BMP 01/27/22 06:02 Sodium 145 Potassium 2.8 L Chloride 107 Carbon Dioxide 28 BUN 28 H Creatinine 0.72 Calcium 7.5 L Assessment and Plan Patient Active problem list reviewed?: Yes (1) Thrombocytopenia Status: Acute Assessment and plan: 1. This is a pleasant 81-year-old male who is currently admitted for probable aspiration pneumonia and altered mental status. Information gathered from chart and speaking to his daughter Bettye. 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 He has not yet started any treatment for this. On 12/29/2021 he was diagnosed with bilateral pulmonary embolism and started on Eliquis. In July 2021 he was diagnosed with a CVA. He has a remote history of prostate cancer diagnosed in 2007 for which he underwent prostatectomy. He was on bicalutamide until recently. Chest x-ray shows possible pneumonia and barium swallow is abnormal with aspiration. Patient was on Zosyn for a few days. Because of decline in platelets he has been switched to Lovenox. His platelet counts have been decreasing since 01/16/2022 even before starting antibiotics. This is probably multifactorial, related to diagnosis of cancer, poor nutrition, infection and antibiotic use. His anemia is stable and sore his kidney functions. No suspicion for TTP which can sometimes be seen in pancreatic cancer. Submit coagulation studies to rule out DIC. Monitor CBC closely. 2. Pulmonary embolism. He is currently on Lovenox 70 mg subQ q.12 hours. Hold if platelet counts go below 50 K. - Time Spent With Patient Time Spent with Patient (in minutes): 20
[2022-01-27 15:56] LABS: Potassium 4.3 mmol/L (3.3-5.1)
--- NOTE | 2022-01-27 16:01 | MHC.CM.PN ---
[facility] Informational completed, Goal remains STR (PP BED HOLD @ [facility]); CM will continue to follow.
--- NOTE | 2022-01-27 16:33 | MHC.SL.SWA ---
Addendum entered and electronically signed by ANNA Chiu 01/27/22 16:53: I have reviewed this note in a supervisory role and agree with it's findings. Original Note: Speech Pathologist Impression: Risk of Aspiration Due to: Medically Fragile Neurological Condition History of Pneumonia Poor PO Intake Dysphasia Diet Status: Modified Barium Swallow Study Fluoroscopic Evaluation of Swallowing Function CPT Code 43204 Evaluation Year: 2021 Reason for Study: Patient displays overt s/s of aspiration. Referring Physician: Misa NI Evaluating Clinician: Michelle Tinajero MA, CCC-FEED WEIGHER Study Number: 1 Patient Name: Spike Zuniga Status: Inpatient, Stretcher Age: 81 Gender: Male MEDICAL HISTORY: Year of Onset or Diagnosis: 2021 Comorbidities: Cancer of liver CVA Hemiparesis/hemiplegia of the left side Pulmonary embolism Dysphagia Pneumonia Malignant neoplasm of the liver Hypertension Hyperlipidemia Glaucoma BPH Liquid Consistency and Strategies for Safe Swallow: Liquid Intake Recommendation: PARTIAL PO Liquid Intake Strategies: Solid Food Consistency: Dietary Recommendations: PARTIAL PO Compensatory Strategies and Precautions to be Taken for Safe Swallow: Sitting Upright (90 deg) Double Swallow Liquids from Cup Small Bites and Sips Alternate Liquids/Solids Rate of Ingestion Change Supervision While Eating and Drinking for Safe Swallow: PO with FEED WEIGHER Foods to Avoid: Per daughter's report, avoid the following as they don't agree with him : cranberry juice, apple sauce, orange juice Swallowing Recommended Treatments: Compens. Strategy Educat. Recommendation for Speech: Inpatient Speech Therapy Speech Therapy through Rehab Facility Comment: Per family request. Went to see pt and family this afternoon to discuss results of MBSS. Educated pt and family on option for nectar thick & pureed (NDD1) diet with risk of aspiration. No official changes to be made w/ diet at this time. The decision is for the pt to make and he did not do so in my presence. Jazzy is the FEED WEIGHER permastone applicator tomorrow from 9am-11am. If the family wishes to talk with an FEED WEIGHER tomorrow morning, Jazzy is able to come in. [employer] Equipment Operator Clinican/Clinical Fellow: Yes: Lisseth Rodriguez M.A., -FEED WEIGHER Supervisory Statement: I have reviewed and agree with the student/clinical fellow's documentation: N/A Speech Language Pathologist: Jazzy Gibbs M.A., [facility]-FEED WEIGHER
--- NOTE | 2022-01-27 18:55 | PC.NURSE ---
Pt disoriented to place and time and situation, requested to talk to his daughter on the phone , wants to go home. Refused blood work tonight, all was reported to Misa NI and DR Howe. Dr Mchugh was notified that pt is refusing blood work tonight.Dr Mchugh stated that blood work she ordered can be done tomorrow
--- NOTE | 2022-01-27 19:02 | PM.EVENT ---
Event Note Date of Service: 01/27/22 Event Note: Called by RN the patient is refusing lab draws Went to see patient he appears disoriented, requesting to be discharged home, refusing labs refusing to be examined, unable to redirect patient On examination clinically appears stable, no tachypnea, no distress Patient refused examination Assessment and plan 81-year-old gentleman with past medical history of PE on Eliquis, liver cancer presented to hospital from half-way with confusion and fall Sepsis secondary to aspiration pneumonia/dysphagia/ Patient on IV ceftriaxone, seen by speech therapy they recommended nectar thick liquids/pureed diet with strict aspiration precautions if patient family agrees to continue this diet knowing that patient is at high risk for aspiration Currently patient is NPO called patient's daughter Bettye Flores [phone] answering machine is full called spouse Erika at [phone] left message, if patient agrees then can give empiric lactulose and follow labs Admitted with metabolic encephalopathy patient remains disoriented and confused Hypernatremia improved, hypokalemia resolved likely due to underlying infection, cancer, elevated LFTs, Ammonia ordered patient refusing lab Thrombocytopenia noted to have significant drop in platelet seen by Oncology likely multifactorial with diagnosis of cancer, poor nutrition infection and antibiotic use,Zosyn discontinued Hematology recommended DIC workup that has been ordered but patient is refusing labs, at present patient looks stable clinically, afebrile, vitals stable does not appear to be septic at present.
[2022-01-27] MEDS: timoloL maleate 0.5 % Oph Sol 5 ML DRBTL 1 DROP EYE-BOTH (20:31)
[2022-01-28] MEDS: Enoxaparin Sodium 80 MG/0.8 ML SYRINGE 70 MG SUBCUT ×2 (01:10→13:50)
[2022-01-28] MEDS: metroNIDAZOLE/NS 500 MG/100 ML PIGGYBACK 100 MG IV ×3 (02:34→19:53)
[2022-01-28 03:36] VITALS: BP 154/67; PULSE 85; RESP 16; TEMP 36.8; O2SAT 97
[2022-01-28] MEDS: Dextrose 5 % and 0.45 % NaCl 1,000 ML 100 ML IVCONT ×2 (05:52→18:43)
[2022-01-28 06:15] LABS: Hemoglobin 10.8 g/dl (14.0-18.0); Mean Corpuscular HGB Conc 31.8 g/dl (31.0-36.0); Mean Corpuscular Hemoglobin 28.3 pg (27.0-33.0); Mean Corpuscular Volume 89.2 fL (80.0-98.0); Mean Platelet Volume 12.1 fL (9.4-12.4); Red Blood Count 3.81 X10*6/uL (4.60-5.80); Red Cell Distribution Width 15.9 % (11.0-16.0); White Blood Count 12.1 X10*3/uL (4.8-10.8)
[2022-01-28 06:19] LABS: Platelet Count 73 X10*3/uL (160-400)
[2022-01-28 06:24] LABS: Ammonia 39 umol/L (13-55)
[2022-01-28 06:32] LABS: Fibrinogen 431 MG/DL (259-690); INTERNATIONAL NORM RATIO 1.8 (0.9-1.1); Prothrombin Time 21.5 SEC (10.0-13.1)
[2022-01-28 06:34] LABS: Partial Thromboplastin Time 35.4 SEC (26.0-36.4)
[2022-01-28 06:42] LABS: Alanine Aminotransferase 131 U/L (0-40); Albumin Level 2.2 g/dL (3.5-5.0); Alkaline Phosphatase 1295 U/L (39-117); Anion Gap 13 (12-20); Aspartate Amino Transferase 234 U/L (5-37); Bilirubin Direct 1.7 mg/dL (0.0-0.5); Bilirubin Total 2.6 mg/dL (0.0-1.0); Blood Urea Nitrogen 23 mg/dL (9-16); Calcium 7.3 mg/dL (8.4-10.2); Carbon Dioxide 25 mmol/L (22-29); Chloride 108 mmol/L (96-108); Creatinine Clr Calc Pharmacy 76.4; Estimated Glomerular Filt Rate > 60; Glucose Random 138 mg/dL (60-115); Potassium 3.1 mmol/L (3.3-5.1); Sodium 143 mmol/L (135-145); Total Protein 4.6 g/dL (6.5-8.0)
[2022-01-28 07:38] VITALS: BP 145/63; PULSE 63; RESP 20; TEMP 36.8; O2SAT 97
[2022-01-28] MEDS: 0.9 % Sodium Chloride Flush 3 ML SYRINGE IVFLUSH (09:27)
[2022-01-28] MEDS: Potassium Chloride/H20 10 MEQ/100 ML PIGGYBACK 100 MEQ IV ×4 (09:29→15:10)
[2022-01-28] MEDS: cefTRIAXone sodium 1 GM in 0.9 % Sodium Chloride 50 ML IV (10:40)
--- NOTE | 2022-01-28 11:28 | P.PNIM_ITS ---
Subjective Subjective Date of Service: 01/28/22 <Leora Reyes NP - Last Filed: 01/28/22 15:16> 02/08/22 <Adilson Erazo MD - Last Filed: 02/08/22 07:42> Review of Systems seen and examined this morning follow up for aspiration pneumonia s/p MBSS yesterday denies fever, chills, SOB <Leora Reyes NP - Last Filed: 01/28/22 15:16> Physical Exam Vital Signs: Vital Signs: Last Vital Signs Temp 98.2 F 01/28/22 07:38 Pulse 63 01/28/22 07:38 Resp 20 01/28/22 07:38 BP 145/63 H 01/28/22 07:38 Pulse Ox 97 01/28/22 07:38 O2 Del Method 01/28/22 07:38 BMI result Body Mass Index 21.9 <Leora Reyes NP - Last Filed: 01/28/22 15:16> Appearing in no acute distress lung sounds are clear to auscultation heart regular rate rhythm, clear S1, S2 positive bowel sounds, abdomen is soft, nontender neuro patient is alert x3, no focal deficits <Leora Reyes NP - Last Filed: 01/28/22 15:16> Objective Data Active Medications Aspirin (Aspirin Enteric Coated 81 Mg Tablet.) 81 mg PO DAILY [facility] Last Admin: 01/28/22 09:18 Dose: Not Given Documented By: ROSEMARY Non-Admin Reason: NPO Benzonatate (Benzonatate 100 Mg Capsule) 100 mg PO TID PRN PRN Reason: Cough Dexamethasone (Dexamethasone 0.5 Mg Tablet) 0.5 mg PO DAILY [facility] Last Admin: 01/28/22 09:18 Dose: Not Given Documented By: ROSEMARY Non-Admin Reason: NPO Enoxaparin Sodium (Enoxaparin Sodium 80 Mg/0.8 Ml Syringe) 70 mg SUBCUT Q12H [facility] Last Admin: 01/28/22 01:10 Dose: 70 mg Documented By: DEB Hydralazine HCl (Hydralazine Hcl 20 Mg/Ml Vial) 5 mg IVPUSH Q6H PRN; Protocol PRN Reason: SBP >180 Last Admin: 01/27/22 10:38 Dose: 5 mg Documented By: THANIA Dextrose/Sodium Chloride (D51/2ns) 1,000 mls @ 100 mls/hr IVCONT .Q10H [facility] Last Admin: 01/28/22 05:52 Dose: 100 mls/hr Documented By: DEB Ceftriaxone Sodium 1 gm/ (Sodium Chloride) 50 mls @ 100 mls/hr IV Q24H [facility] Last Admin: 01/28/22 10:40 Dose: 100 mls/hr Documented By: ROSEMARY Metronidazole (Flagyl) 500 mg in 100 mls @ 100 mls/hr IV Q8H [facility] Last Admin: 01/28/22 11:20 Dose: 100 mls/hr Documented By: ROSEMARY Potassium Chloride (Potassium Chloride/H20) 10 meq in 100 mls @ 100 mls/hr IV Q1H [facility] Stop: 01/28/22 12:59 Last Admin: 01/28/22 11:24 Dose: 100 mls/hr Documented By: ROSEMARY Losartan Potassium (Losartan Potassium 50 Mg Tablet) 50 mg PO DAILY [facility]; Protocol Last Admin: 01/28/22 09:18 Dose: Not Given Documented By: ROSEMARY Non-Admin Reason: NPO Melatonin (Melatonin 3 Mg Tablet) 6 mg PO BEDTIME PRN PRN Reason: Insomnia Non-Formulary Medication (Tafluprost (Pf) [Zioptan (Pf)]) 1 drop EYE-BOTH BEDTIME [facility] Omeprazole (Omeprazole 20 Mg Capsule.Dr) 20 mg PO DAILY@0630 [facility] Last Admin: 01/28/22 05:58 Dose: Not Given Documented By: DEB Non-Admin Reason: unsafe to swallow Ondansetron HCl (Ondansetron Hcl 4 Mg/2 Ml Vial) 4 mg IVPUSH Q8H PRN PRN Reason: Nausea and Vomiting Pharmacy Consult (Consult Rx Perform Med Rec) 1 each MISCELLANE ONCE PRN PRN Reason: Consult order Pravastatin Sodium (Pravastatin Sodium 40 Mg Tablet) 40 mg PO BEDTIME [facility] Last Admin: 01/27/22 20:27 Dose: Not Given Documented By: BILLIE Non-Admin Reason: NPO Sodium Chloride (0.9 % Sodium Chloride Flush 3 Ml Syringe) 3 ml IVFLUSH QSHIFT [facility] Last Admin: 01/28/22 09:27 Dose: 3 ml Documented By: ROSEMARY Timolol Maleate (Timolol Maleate 0.5 % Oph Tracy 5 Ml Drbtl) 1 drop EYE-BOTH BEDTIME [facility] Last Admin: 01/27/22 20:31 Dose: 1 drop Documented By: BILLIE <Leora Reyes NP - Last Filed: 01/28/22 15:16> Labs CBC & Chem 7: : 01/28/22 05:58 01/31/22 18:45 <Leora Reyes NP - Last Filed: 01/28/22 15:16> Labs: Laboratory Results - last 24 hr 01/28/22 01/28/22 01/28/22 05:58 05:58 05:59 MCV 89.2 MCH 28.3 MCHC 31.8 RDW 15.9 Plt Count 73 L D MPV 12.1 Absolute Nucleated RBC 0.000 Nucleated RBC % (auto) 0.0 PT 21.5 H INR 1.8 H APTT 35.4 Fibrinogen 431 Anion Gap Estim Creat Clear Calc Estimated GFR Random Glucose Calcium Total Bilirubin Direct Bilirubin AST ALT Alkaline Phosphatase Ammonia 39 Total Protein Albumin 01/28/22 05:59 MCV MCH MCHC RDW Plt Count MPV Absolute Nucleated RBC Nucleated RBC % (auto) PT INR APTT Fibrinogen Anion Gap 13 Estim Creat Clear Calc 76.4 Estimated GFR > 60 Random Glucose 138 H D Calcium 7.3 L Total Bilirubin 2.6 H Direct Bilirubin 1.7 H AST 234 H ALT 131 H Alkaline Phosphatase 1295 H D Ammonia Total Protein 4.6 L Albumin 2.2 L <Leora Reyes NP - Last Filed: 01/28/22 15:16> Microbiology Microbiology Results: Microbiology 01/25/22 11:04 Blood Culture - Preliminary Blood - Venous No growth after 48 hours. 01/25/22 11:04 Blood Culture - Preliminary Blood - Venous No growth after 48 hours. <Leora Reyes NP - Last Filed: 01/28/22 15:16> Assessment and Plan (1) Cancer of liver: Status: Acute <Leora Reyes NP - Last Filed: 01/28/22 15:16> (2) Transaminitis: Status: Acute <Leora Reyes NP - Last Filed: 01/28/22 15:16> (3) Pneumonia: Status: Inactive <Leora Reyes NP - Last Filed: 01/28/22 15:16> (4) Hypokalemia: Status: Resolved <Leora Reyes NP - Last Filed: 01/28/22 15:16> (5) Sepsis: Status: Resolved <Leora Reyes NP - Last Filed: 01/28/22 15:16> Assessment and Plan: An 81 years old male with PMH of PE on Eliquis, CVA with left hemiparesis, dysphagia, liver cancers, HTN, BPH among other who presented to the hospital from [facility] with confusion and a fall. Sepsis secondary to aspiration pneumonia Initially with eukocytosis, lactic acidosis and tachycardia. lactic acidosis and tachycardia resolved. WBC trending down CXR concerning for bilateral basal infiltrate BS masses Continue IV antibiotics s/p speech eval/MBSS Blood cultures negative to date dysphagia s/p speech evaluation and MBSS, internal medicine nurse rec pureed diet with honey thick liquids also aware that patient is at high risk for aspiration and decision regarding nutrition should be made between medical care team and family started discussion regarding feeding tube with patient and daughter (HCP) at bedside - they would like time to discuss GI consult pending Thrombocytopenia Platelets decreasing since admission ? r/t to zosyn Zosyn stopped, changed to Rocephin and Flagyl seen evaluated by Hematology with recommendation to check DIC labs, monitor CBC, patient had been refusing labs, will reassess Metabolic encephalopathy. Resolving 2/2 Hypernatremia secondary to dehydration and sepsis Normal ammonia HCP was invoked at [facility]F a few days before coming to the hospital due to confusion Hypernatremia resolved Follow BMP closely Transaminitis Likely secondary to sepsis and liver cancer fairly stable Hypokalemia/ hypomagnesemia replace both IV follow BMP Liver cancer Not on any active treatment at this point Family open to discuss goals of care Outpatient follow up with Dr. Vieyra at [facility] Elevated troponin trops flat likely demand related. no chest pain Hypertension prn hydralazine losartan if able to take po h/o PE continue Eliquis h/o CVA left side weakness DVT PPX - Eliquis stage 2 pressure wound to cocyxx local wound care attending - dr. Erazo Needs ongoing inpatient treatment for sepsis and hypernatremia pending final blood cultures to prevent possible decompensation to severe sepsis. <Leora Reyes NP - Last Filed: 01/28/22 15:16> Quality Stroke Does the patient have a stroke diagnosis?: No <Leora Reyes NP - Last Filed: 01/28/22 15:16> VTE Prior VTE?: No <Leora Reyes NP - Last Filed: 01/28/22 15:16> VTE Risk Level:: Medical - moderate - high <Leora Reyes NP - Last Filed: 01/28/22 15:16> VTE Device Contraindication: Treatment Not Indicated <Leora Reyes NP - Last Filed: 01/28/22 15 :16> VTE Drug Contraindication: N/A - Med Ordered <Leora Reyes NP - Last Filed: 01/28/22 15:16>
[2022-01-28 11:41] VITALS: BP 152/67; PULSE 65; RESP 16; TEMP 36.9; O2SAT 97
[2022-01-28 14:48] LABS: Magnesium 1.8 mg/dL (1.6-2.6)
[2022-01-28 15:35] VITALS: BP 149/66; PULSE 75; RESP 18; TEMP 37.1; O2SAT 98
[2022-01-28 19:37] VITALS: BP 136/64; PULSE 79; RESP 18; TEMP 37; O2SAT 97
[2022-01-28] MEDS: timoloL maleate 0.5 % Oph Sol 5 ML DRBTL 1 DROP EYE-BOTH (20:03)
--- NOTE | 2022-01-28 20:03 | PC.NURSE ---
pt states he can't swallow. HS PO Pravastatin held. Pt spitting up thick brown phlegm. Denies sob.
--- NOTE | 2022-01-28 22:51 | PC.NURSE ---
Bladder scan 2015-57mls. Will pass along in report and continue to monitor.
[2022-01-29] VITALS: BP 153/69; PULSE 77; RESP 16; TEMP 37.1; O2SAT 94
[2022-01-29] MEDS: 0.9 % Sodium Chloride Flush 3 ML SYRINGE IVFLUSH ×2 (00:43→17:10)
[2022-01-29] MEDS: Enoxaparin Sodium 80 MG/0.8 ML SYRINGE 70 MG SUBCUT ×2 (03:02→14:57)
[2022-01-29] MEDS: metroNIDAZOLE/NS 500 MG/100 ML PIGGYBACK 100 MG IV ×3 (03:03→21:16)
[2022-01-29] MEDS: Dextrose 5 % and 0.45 % NaCl 1,000 ML 100 ML IVCONT (03:03)
[2022-01-29 04:00] VITALS: BP 152/67; PULSE 71; RESP 14; TEMP 37; O2SAT 97
--- NOTE | 2022-01-29 05:33 | PC.NURSE ---
Pt voiding small amounts, bladder scanned for 232. Pt repositioned and states he is comfortable.
[2022-01-29 08:00] VITALS: BP 155/70; PULSE 73; RESP 16; TEMP 36; O2SAT 98
[2022-01-29] MEDS: cefTRIAXone sodium 1 GM in 0.9 % Sodium Chloride 50 ML IV (09:59)
--- NOTE | 2022-01-29 11:27 | P.PNIM_ITS ---
Subjective Subjective Date of Service: 01/29/22 <Leora Reyes NP - Last Filed: 01/29/22 11:31> 02/08/22 <Adilson Erazo MD - Last Filed: 02/08/22 07:43> Review of Systems seen and examined this morning follow up for aspiration pneumonia s/p MBSS yesterday denies fever, chills, SOB <Leora Reyes NP - Last Filed: 01/29/22 11:31> Physical Exam Vital Signs: Vital Signs: Last Vital Signs Temp 96.8 F 01/29/22 08:00 Pulse 73 01/29/22 08:00 Resp 16 01/29/22 08:00 BP 155/70 H 01/29/22 08:00 Pulse Ox 98 01/29/22 08:00 O2 Del Method 01/29/22 08:00 BMI result Body Mass Index 21.9 <Leora Reyes NP - Last Filed: 01/29/22 11:31> Appearing in no acute distress lung sounds are clear to auscultation heart regular rate rhythm, clear S1, S2 positive bowel sounds, abdomen is soft, nontender neuro patient is alert x3, no focal deficits <Leora Reyes NP - Last Filed: 01/29/22 11:31> Objective Data Active Medications Aspirin (Aspirin Enteric Coated 81 Mg Tablet.) 81 mg PO DAILY [facility] Last Admin: 01/29/22 09:46 Dose: Not Given Documented By: ROSEMARY Non-Admin Reason: NPO Benzonatate (Benzonatate 100 Mg Capsule) 100 mg PO TID PRN PRN Reason: Cough Dexamethasone (Dexamethasone 0.5 Mg Tablet) 0.5 mg PO DAILY [facility] Last Admin: 01/29/22 09:46 Dose: Not Given Documented By: ROSEMARY Non-Admin Reason: NPO Enoxaparin Sodium (Enoxaparin Sodium 80 Mg/0.8 Ml Syringe) 70 mg SUBCUT Q12H [facility] Last Admin: 01/29/22 03:02 Dose: 70 mg Documented By: DEB Hydralazine HCl (Hydralazine Hcl 20 Mg/Ml Vial) 5 mg IVPUSH Q6H PRN; Protocol PRN Reason: SBP >180 Last Admin: 01/27/22 10:38 Dose: 5 mg Documented By: THANIA Ceftriaxone Sodium 1 gm/ (Sodium Chloride) 50 mls @ 100 mls/hr IV Q24H [facility] Last Infusion: 01/29/22 10:40 Dose: 0 mls/hr Documented By: ROSEMARY Metronidazole (Flagyl) 500 mg in 100 mls @ 100 mls/hr IV Q8H [facility] Last Admin: 01/29/22 10:59 Dose: 100 mls/hr Documented By: ROSEMARY Losartan Potassium (Losartan Potassium 50 Mg Tablet) 50 mg PO DAILY [facility]; Protoc ol Last Admin: 01/29/22 09:46 Dose: Not Given Documented By: ROSEMARY Non-Admin Reason: NPO Melatonin (Melatonin 3 Mg Tablet) 6 mg PO BEDTIME PRN PRN Reason: Insomnia Non-Formulary Medication (Tafluprost (Pf) [Zioptan (Pf)]) 1 drop EYE-BOTH BEDTIME [facility] Omeprazole (Omeprazole 20 Mg Capsule.Dr) 20 mg PO DAILY@0630 [facility] Last Admin: 01/29/22 06:41 Dose: Not Given Documented By: DEB Non-Admin Reason: NPO Ondansetron HCl (Ondansetron Hcl 4 Mg/2 Ml Vial) 4 mg IVPUSH Q8H PRN PRN Reason: Nausea and Vomiting Pharmacy Consult (Consult Rx Perform Med Rec) 1 each MISCELLANE ONCE PRN PRN Reason: Consult order Pravastatin Sodium (Pravastatin Sodium 40 Mg Tablet) 40 mg PO BEDTIME [facility] Last Admin: 01/28/22 20:02 Dose: Not Given Documented By: RAMSES Non-Admin Reason: NPO Sodium Chloride (0.9 % Sodium Chloride Flush 3 Ml Syringe) 3 ml IVFLUSH QSHIFT [facility] Last Admin: 01/29/22 09:58 Dose: Not Given Documented By: ROSEMARY Non-Admin Reason: IV Running Timolol Maleate (Timolol Maleate 0.5 % Oph Tracy 5 Ml Drbtl) 1 drop EYE-BOTH BEDTIME [facility] Last Admin: 01/28/22 20:03 Dose: 1 drop Documented By: RAMSES <Leora Reyes NP - Last Filed: 01/29/22 11:31> Labs CBC & Chem 7: : 01/28/22 05:58 01/31/22 18:45 <Leora Reyes NP - Last Filed: 01/29/22 11:31> Labs: Laboratory Results - last 24 hr 01/28/22 05:59 Magnesium 1.8 <Leora Reyes NP - Last Filed: 01/29/22 11:31> Assessment and Plan (1) Cancer of liver: Status: Acute <Leora Reyes NP - Last Filed: 01/29/22 11:31> (2) Transaminitis: Status: Acute <Leora Reyes NP - Last Filed: 01/29/22 11:31> (3) Pneumonia: Status: Inactive <Leora Reyes NP - Last Filed: 01/29/22 11:31> (4) Hypokalemia: Status: Resolved <Leora Reyes NP - Last Filed: 01/29/22 11:31> (5) Sepsis: Status: Resolved <Leora Reyes NP - Last Filed: 01/29/22 11:31> Assessment and Plan: An 81 years old male with PMH of PE on Eliquis, CVA with left hemiparesis, dysphagia, liver cancers, HTN, BPH among other who presented to the hospital from residential with confusion and a fall. Sepsis secondary to aspiration pneumonia Initially with leukocytosis, lactic acidosis and tachycardia. lactic acidosis and tachycardia resolved. WBC trending down CXR concerning for bilateral basal infiltrate BS masses Continue IV antibiotics s/p speech eval/MBSS Blood cultures negative to date dysphagia s/p speech evaluation and MBSS, preprint analyst rec pureed diet with honey thick liquids also aware that patient is at high risk for aspiration and decision regarding nutrition should be made between medical care team and family started discussion regarding feeding tube with patient and daughter (HCP) at bedside - they would like time to discuss GI consult pending Thrombocytopenia Platelets decreasing since admission ? r/t to zosyn Zosyn stopped, changed to Rocephin and Flagyl seen evaluated by Hematology with recommendation to check DIC labs, monitor CBC, patient had been refusing labs, will reassess Metabolic encephalopathy. Resolving 2/2 Hypernatremia secondary to dehydration and sepsis Normal ammonia HCP was invoked at SNF a few days before coming to the hospital due to confusion Hypernatremia resolved Follow BMP closely Transaminitis Likely secondary to sepsis and liver cancer fairly stable Hypokalemia/ hypomagnesemia replace both IV follow BMP Liver cancer Not on any active treatment at this point Family open to discuss goals of care Outpatient follow up with Dr. Vieyra at [facility] Elevated troponin trops flat likely demand related. no chest pain Hypertension prn hydralazine losartan if able to take po h/o PE continue Eliquis h/o CVA left side weakness DVT PPX - Eliquis stage 2 pressure wound to cocyxx local wound care attending - dr. Erazo Needs ongoing inpatient treatment for sepsis and hypernatremia pending final blood cultures to prevent possible decompensation to severe sepsis. <Leora Reyes NP - Last Filed: 01/29/22 11:31> Quality Stroke Does the patient have a stroke diagnosis?: No <Leora Reyes NP - Last Filed: 01/29/22 11:31> VTE Prior VTE?: No <Leora Reyes NP - Last Filed: 01/29/22 11:31> VTE Risk Level:: Medical - moderate - high <Leora Reyes NP - Last Filed: 01/29/22 11:31> VTE Device Contraindication: Treatment Not Indicated <Leora Reyes NP - Last Filed: 01/29/22 11:31> VTE Drug Contraindication: N/A - Med Ordered <Leora Reyes NP - Last Filed: 01/29/22 11:31>
[2022-01-29 12:00] VITALS: BP 130/48; PULSE 80; RESP 16; TEMP 36.4; O2SAT 96
[2022-01-29 15:29] VITALS: BP 142/65; PULSE 74; RESP 15; TEMP 36.9; O2SAT 96
[2022-01-29 19:44] VITALS: BP 144/67; PULSE 83; RESP 17; TEMP 36.9; O2SAT 96
[2022-01-29] MEDS: timoloL maleate 0.5 % Oph Sol 5 ML DRBTL 1 DROP EYE-BOTH (21:17)
[2022-01-29] MEDS: Pravastatin Sodium 40 MG TABLET PO (21:17)
[2022-01-30] VITALS (7 sets, daily range): BP systolic 116–161; BP diastolic 50–70; PULSE 66–78; RESP 16–20; TEMP 36.4–37.1; O2SAT 96–97
[2022-01-30] MEDS: metroNIDAZOLE/NS 500 MG/100 ML PIGGYBACK 100 MG IV ×3 (04:30→18:12)
[2022-01-30] MEDS: Enoxaparin Sodium 80 MG/0.8 ML SYRINGE 70 MG SUBCUT ×2 (04:30→14:51)
[2022-01-30] MEDS: 0.9 % Sodium Chloride Flush 3 ML SYRINGE IVFLUSH ×3 (04:31→20:17)
[2022-01-30 08:29] LABS: Anion Gap 12 (12-20); Blood Urea Nitrogen 18 mg/dL (9-16); Calcium 7.5 mg/dL (8.4-10.2); Carbon Dioxide 26 mmol/L (22-29); Chloride 107 mmol/L (96-108); Creatinine Clr Calc Pharmacy 77.4; Estimated Glomerular Filt Rate > 60; Glucose Random 82 mg/dL (60-115); Potassium 3.4 mmol/L (3.3-5.1); Sodium 142 mmol/L (135-145)
--- NOTE | 2022-01-30 08:39 | HO.PM.IMPN ---
Subjective Subjective Date of Service: 01/30/22 Review of Systems seen and examined this morning follow up for aspiration pneumonia s/p MBSS yesterday denies fever, chills, SOB Physical Exam Vital Signs: Vital Signs: Last Vital Signs Temp 97.8 F 01/30/22 07:48 Pulse 76 01/30/22 07:48 Resp 20 01/30/22 07:48 BP 138/63 01/30/22 07:48 Pulse Ox 97 01/30/22 07:48 O2 Del Method 01/30/22 07:48 BMI result Body Mass Index 21.9 Appearing in no acute distress lung sounds are clear to auscultation, large amount of mucus heart regular rate rhythm, clear S1, S2 positive bowel sounds, abdomen is soft, nontender neuro patient is alert x3, no focal deficits Objective Data Active Medications Aspirin (Aspirin Enteric Coated 81 Mg Tablet.Dr) 81 mg PO DAILY [facility] Last Admin: 01/29/22 09:46 Dose: Not Given Documented By: ROSEMARY Non-Admin Reason: NPO Benzonatate (Benzonatate 100 Mg Capsule) 100 mg PO TID PRN PRN Reason: Cough Dexamethasone (Dexamethasone 0.5 Mg Tablet) 0.5 mg PO DAILY [facility] Last Admin: 01/29/22 09:46 Dose: Not Given Documented By: ROSEMARY Non-Admin Reason: NPO Enoxaparin Sodium (Enoxaparin Sodium 80 Mg/0.8 Ml Syringe) 70 mg SUBCUT Q12H [facility] Last Admin: 01/30/22 04:30 Dose: 70 mg Documented By: ARIA Hydralazine HCl (Hydralazine Hcl 20 Mg/Ml Vial) 5 mg IVPUSH Q6H PRN; Protocol PRN Reason: SBP >180 Last Admin: 01/27/22 10:38 Dose: 5 mg Documented By: THANIA Ceftriaxone Sodium 1 gm/ (Sodium Chloride) 50 mls @ 100 mls/hr IV Q24H [facility] Last Infusion: 01/29/22 10:40 Dose: 0 mls/hr Documented By: ROSEMARY Metronidazole (Flagyl) 500 mg in 100 mls @ 100 mls/hr IV Q8H [facility] Last Admin: 01/30/22 04:30 Dose: 100 mls/hr Documented By: ARIA Losartan Potassium (Losartan Potassium 50 Mg Tablet) 50 mg PO DAILY [facility]; Protocol Last Admin: 01/29/22 09:46 Dose: Not Given Documented By: ROSEMARY Non-Admin Reason: NPO Melatonin (Melatonin 3 Mg Tablet) 6 mg PO BEDTIME PRN PRN Reason: Insomnia Non-Formulary Medication (Tafluprost (Pf) [Zioptan (Pf)]) 1 drop EYE-BOTH BEDTIME [facility] Omeprazole (Omeprazole 20 Mg Capsule.Dr) 20 mg PO DAILY@0630 [facility] Last Admin: 01/30/22 04:37 Dose: Not Given Documented By: ARIA Non-Admin Reason: NPO Ondansetron HCl (Ondansetron Hcl 4 Mg/2 Ml Vial) 4 mg IVPUSH Q8H PRN PRN Reason: Nausea and Vomiting Pharmacy Consult (Consult Rx Perform Med Rec) 1 each MISCELLANE ONCE PRN PRN Reason: Consult order Pravastatin Sodium (Pravastatin Sodium 40 Mg Tablet) 40 mg PO BEDTIME [facility] Last Admin: 01/29/22 21:17 Dose: 40 mg Documented By: ARIA Sodium Chloride (0.9 % Sodium Chloride Flush 3 Ml Syringe) 3 ml IVFLUSH QSHIFT [facility] Last Admin: 01/30/22 04:31 Dose: 3 ml Documented By: ARIA Timolol Maleate (Timolol Maleate 0.5 % Oph Tracy 5 Ml Drbtl) 1 drop EYE-BOTH BEDTIME [facility] Last Admin: 01/29/22 21:17 Dose: 1 drop Documented By: ARIA Labs CBC & Chem 7: 01/28/22 05:58 01/30/22 07:58 Labs: Laboratory Results - last 24 hr 01/30/22 07:58 Anion Gap 12 Estim Creat Clear Calc 77.4 Estimated GFR > 60 Random Glucose 82 D Calcium 7.5 L Assessment and Plan (1) Cancer of liver: Status: Acute (2) Transaminitis: Status: Acute (3) Pneumonia: Status: Acute (4) Hypokalemia: Status: Acute (5) Sepsis: Status: Acute Plan An 81 years old male with PMH of PE on Eliquis, CVA with left hemiparesis, dysphagia, liver cancers, HTN, BPH among other who presented to the hospital from alf with confusion and a fall. Sepsis secondary to aspiration pneumonia Initially with leukocytosis, lactic acidosis and tachycardia. lactic acidosis and tachycardia resolved. WBC trending down CXR concerning for bilateral basal infiltrate BS masses Continue IV antibiotics s/p speech eval/MBSS Blood cultures negative to date dysphagia s/p speech evaluation and MBSS, telesales team leader rec pureed diet with honey thick liquids also aware that patient is at high risk for aspiration and decision regarding nutrition should be made between medical care team and family started discussion regarding feeding tube with patient and daughter (HCP) at bedside - they would like time to discuss GI consult pending For PICC line for IV fluids in rehab Thrombocytopenia Platelets decreasing since admission ? r/t to zosyn Zosyn stopped, changed to Rocephin and Flagyl seen evaluated by Hematology with recommendation to check DIC labs, monitor CBC, patient had been refusing labs, will reassess Metabolic encephalopathy. Resolving 2/2 Hypernatremia secondary to dehydration and sepsis Normal ammonia HCP was invoked at SNF a few days before coming to the hospital due to confusion Hypernatremia resolved Follow BMP closely Transaminitis Likely secondary to sepsis and liver cancer fairly stable Hypokalemia/ hypomagnesemia replace both IV follow BMP Liver cancer Not on any active treatment at this point Family open to discuss goals of care Outpatient follow up with Dr[facility] Vieyra at [facility] Elevated troponin trops flat likely demand related. no chest pain Hypertension prn hydralazine losartan if able to take po h/o PE continue Eliquis h/o CVA left side weakness DVT PPX - Eliquis stage 2 pressure wound to cocyxx local wound care attending - dr. Erazo Discussed case with patient's daughter, plan to transfer to detention facility likely transition to hospice Needs ongoing inpatient treatment for sepsis and hypernatremia pending final blood cultures to prevent possible decompensation to severe sepsis. Quality Stroke Does the patient have a stroke diagnosis?: No VTE Prior VTE?: No VTE Risk Level:: Medical - moderate - high VTE Device Contraindication: Treatment Not Indicated VTE Drug Contraindication: N/A - Med Ordered
[2022-01-30] MEDS: cefTRIAXone sodium 1 GM in 0.9 % Sodium Chloride 50 ML IV (09:41)
--- NOTE | 2022-01-30 10:37 | MHC.CM.PN ---
MALE 81 S/P FALL PER PA PATIENT TO RETURN TO [facility] FOR STR. CLINICAL INFORMATION HAS BEEN SENT TO [facility]. DC IS PLANNED FOR TOMORROW. PLAN IS TO TRANSITION TO HOSPICE. aTTEMPTED TO REACH DTR. NO ABILITY TO LEAVE A . WILL TRY TO REACH AGAIN LATER.
--- NOTE | 2022-01-30 14:06 | MHC.SL.SWA ---
Speech Pathologist Impression: Risk of Aspiration Due to: Medically Fragile Neurological Condition History of Pneumonia Poor PO Intake Dysphasia Diet Status: Recommend Patient continue NPO at this time, with controlled/supervised p.o. trials with BUILDING ASSOCIATE only. Patient and family declining advancing diet to Honey Thick/Puree at this time due to aspiration risk, aversion to food textures, pattern of gagging/wretching on food and liquids. Liquid Consistency and Strategies for Safe Swallow: Liquid Intake Recommendation: PARTIAL PO Liquid Intake Strategies: Solid Food Consistency: Dietary Recommendations: PARTIAL PO Additional Modifications to Solid Foods: Oral Medication Intake: Crushed with Puree Please contact the pharmacy regarding appropriate crushable or liquid drug formulations that are available whenever modified delivery is recommended. Compensatory Strategies and Precautions to be Taken for Safe Swallow: Sitting Upright (90 deg) Double Swallow Liquids from Cup Small Bites and Sips Alternate Liquids/Solids Rate of Ingestion Change Supervision While Eating and Drinking for Safe Swallow: PO with BUILDING ASSOCIATE Foods to Avoid: Per daughter's report, avoid the following as they don't agree with him : cranberry juice, apple sauce, orange juice Swallowing Recommended Treatments: Gustatory Stimulation Pharyngeal Resistive Exer Recommendation for Speech: Inpatient Speech Therapy Speech Therapy through Rehab Facility Comment: Patient seen this AM for swallowing treatment with daughter present in room for the session. Daughter and patient continue to state that patient/family decision to return to diet is on hold at this time due to swallowing issues, aspiration risk, aversion to food/liquid consistencies. Patient over the weekend has declined oral medication (crushed in Puree) due to difficulty swallowing. Patient agreed to swallowing trials with BUILDING ASSOCIATE. Prepared patient before initiating trial with instruction/expectation that patient would attempt to swallow twice, making effortful swallow on each presentation of Honey Thick bolus, and attempt to avoid coughing up any sensated residual after swallow. Pt was given 1/2 TSP amounts of Honey Thick Grape Juice, producing two swallows with effort on each bolus. After second presentation, patient noted to begin to have evident discomfort, throat clearing. Patient instructed to clear throat and swallow v/ coughing/spitting up, which was then executed by patient. After further pause, patient began to gag/wretch, producing discolored phlegm expectorated from mouth. Patient then asked if he could have water. Patient was then offered oral care, prior to controlled water treatment, after re-explaining documented aspiration on thin liquids. Patient completed oral care with moderate assistance. Patient give 1/4 tsp of water, which patient initially swished and spat on 3 trials. On two trials, patient swallowed trace amount of water, with audible swalllow, mildly reduced laryngeal transit noted. No clinical signs of aspiration. Patient c/o fatigue, asked to finish session. Suggested Referrals: The patient might benefit from a referral to: Gastroenterology . Frequency/Duration: Date Range for Service Req: Timeline to reassess: Marine Steam Fitter Helper Clinican/Clinical Fellow: No Supervisory Statement: I have reviewed and agree with the student/clinical fellow's documentation: N/A Speech Language Pathologist: Jazzy Gibbs M.A., CCC-BUILDING ASSOCIATE
[2022-01-30] MEDS: Dextrose 5 % and 0.9 % NaCl 1,000 ML 80 ML IVCONT (14:50)
[2022-01-30] MEDS: timoloL maleate 0.5 % Oph Sol 5 ML DRBTL 1 DROP EYE-BOTH (20:17)
[2022-01-31 03:11] VITALS: BP 159/56; PULSE 80; RESP 16; TEMP 36.3; O2SAT 97
[2022-01-31] MEDS: Enoxaparin Sodium 80 MG/0.8 ML SYRINGE 70 MG SUBCUT ×2 (03:34→16:33)
[2022-01-31] MEDS: metroNIDAZOLE/NS 500 MG/100 ML PIGGYBACK 100 MG IV ×3 (03:36→18:08)
[2022-01-31] MEDS: Dextrose 5 % and 0.9 % NaCl 1,000 ML 80 ML IVCONT ×2 (03:37→16:34)
[2022-01-31 08:00] VITALS: BP 155/67; PULSE 67; RESP 20; TEMP 36.6; O2SAT 98
--- NOTE | 2022-01-31 10:38 | HO.PM.IMPN ---
Subjective Subjective Date of Service: 01/31/22 <Leora Reyes NP - Last Filed: 01/31/22 11:35> 01/31/22 <Harry Howe MD - Last Filed: 01/31/22 13:50> Review of Systems seen and examined this morning follow up for aspiration pneumonia denies fever, chills, SOB <Leora Reyes NP - Last Filed: 01/31/22 11:35> Physical Exam Vital Signs: Vital Signs: Last Vital Signs Temp 97.8 F 01/31/22 08:00 Pulse 67 01/31/22 08:00 Resp 20 01/31/22 08:00 BP 155/67 H 01/31/22 08:00 Pulse Ox 98 01/31/22 08:00 O2 Del Method 01/31/22 08:00 BMI result Body Mass Index 21.9 <Leora Reyes NP - Last Filed: 01/31/22 11:35> Appearing in no acute distress, jaundice skin lung sounds are clear to auscultation heart regular rate rhythm, clear S1, S2 positive bowel sounds, abdomen is soft, nontender neuro patient is alert x3, no focal deficits <Leora Reyes NP - Last Filed: 01/31/22 11:35> Objective Data Active Medications Aspirin (Aspirin Enteric Coated 81 Mg Tablet.) 81 mg PO DAILY [facility] Last Admin: 01/30/22 09:41 Dose: Not Given Documented By: DESMOND Non-Admin Reason: NPO Benzonatate (Benzonatate 100 Mg Capsule) 100 mg PO TID PRN PRN Reason: Cough Dexamethasone (Dexamethasone 0.5 Mg Tablet) 0.5 mg PO DAILY [facility] Last Admin: 01/30/22 09:41 Dose: Not Given Documented By: DESMOND Non-Admin Reason: NPO Enoxaparin Sodium (Enoxaparin Sodium 80 Mg/0.8 Ml Syringe) 70 mg SUBCUT Q12H [facility] Last Admin: 01/31/22 03:34 Dose: 70 mg Documented By: ELIZABETH Hydralazine HCl (Hydralazine Hcl 20 Mg/Ml Vial) 5 mg IVPUSH Q6H PRN; Protocol PRN Reason: SBP >180 Last Admin: 01/27/22 10:38 Dose: 5 mg Documented By: THANIA Ceftriaxone Sodium 1 gm/ (Sodium Chloride) 50 mls @ 100 mls/hr IV Q24H [facility] Last Infusion: 01/30/22 10:18 Dose: 0 mls/hr Documented By: DESMOND Metronidazole (Flagyl) 500 mg in 100 mls @ 100 mls/hr IV Q8H [facility] Last Infusion: 01/31/22 05:26 Dose: 0 mls/hr Documented By: ELIZABETH Dextrose/Sodium Chloride (D5ns) 1,000 mls @ 80 mls/hr IVCONT .[id number] [facility] Last Infusion: 01/31/22 03:45 Dose: 0 mls/hr Documented By: ELIZABETH Losartan Potassium (Losartan Potassium 50 Mg Tablet) 50 mg PO DAILY [facility]; Protocol Last Admin: 01/30/22 09:41 Dose: Not Given Documented By: DESMOND Non-Admin Reason: NPO Melatonin (Melatonin 3 Mg Tablet) 6 mg PO BEDTIME PRN PRN Reason: Insomnia Non-Formulary Medication (Tafluprost (Pf) [Zioptan (Pf)]) 1 drop EYE-BOTH BEDTIME [facility] Omeprazole (Omeprazole 20 Mg Capsule.Dr) 20 mg PO DAILY@0630 [facility] Last Admin: 01/31/22 06:28 Dose: Not Given Documented By: ELIZABETH Non-Admin Reason: NPO Ondansetron HCl (Ondansetron Hcl 4 Mg/2 Ml Vial) 4 mg IVPUSH Q8H PRN PRN Reason: Nausea and Vomiting Pharmacy Consult (Consult Rx Perform Med Rec) 1 each MISCELLANE ONCE PRN PRN Reason: Consult order Pravastatin Sodium (Pravastatin Sodium 40 Mg Tablet) 40 mg PO BEDTIME [facility] Last Admin: 01/30/22 20:17 Dose: Not Given Documented By: ELIZABETH Non-Admin Reason: NPO Sodium Chloride (0.9 % Sodium Chloride Flush 3 Ml Syringe) 3 ml IVFLUSH QSHIFT [facility] Last Admin: 01/31/22 09:54 Dose: Not Given Documented By: ELIU Non-Admin Reason: IV Running Timolol Maleate (Timolol Maleate 0.5 % Oph Tracy 5 Ml Drbtl) 1 drop EYE-BOTH BEDTIME [facility] Last Admin: 01/30/22 20:17 Dose: 1 drop Documented By: LEIZABETH <Leora Reyes NP - Last Filed: 01/31/22 11:35> Labs CBC & Chem 7: : 01/28/22 05:58 01/30/22 07:58 <Leora Reyes NP - Last Filed: 01/31/22 11:35> Microbiology Microbiology Results: Microbiology 01/25/22 11:04 Blood Culture - Final Blood - Venous No growth after 5 days. 01/25/22 11:04 Blood Culture - Final Blood - Venous No growth after 5 days. <Leora Reyes NP - Last Filed: 01/31/22 11:35> Assessment and Plan (1) Cancer of liver: Status: Acute <Leora Reyes NP - Last Filed: 01/31/22 11:35> (2) Transaminitis: Status: Acute <Leora Reyes NP - Last Filed: 01/31/22 11:35> (3) Pneumonia: Status: Acute <Leora Reyes NP - Last Filed: 01/31/22 11:35> (4) Hypokalemia: Status: Acute <Leora Reyes NP - Last Filed: 01/31/22 11:35> (5) Sepsis: Status: Acute <Leora Reyes NP - Last Filed: 01/31/22 11:35> Assessment and Plan: An 81 years old male with PMH of PE on Eliquis, CVA with left hemiparesis, dysphagia, liver cancers, HTN, BPH among other who presented to the hospital from [facility] with confusion and a fall. Dysphagia s/p speech evaluation and MBSS, pan reclaim processor rec pureed diet with honey thick liquids also aware that patient is at high risk for aspiration Patient declined a feeding tube and at this point very anxious about eating anything due to fear of aspiration Plan for Midline for IV fluids at SNF Not been taking any medications at this time orally Sepsis secondary to aspiration pneumonia Initially with leukocytosis, lactic acidosis and tachycardia. lactic acidosis and tachycardia resolved. CXR concerning for bilateral basal infiltrate BS masses Continue IV antibiotics Blood cultures negative to date Thrombocytopenia Platelets decreasing since admission ? r/t to zosyn Zosyn stopped, changed to Rocephin and Flagyl seen evaluated by Hematology with recommendation to check DIC labs> negative, monitor CBC Metabolic encephalopathy. Resolving 2/2 Hypernatremia secondary to dehydration and sepsis Normal ammonia HCP was invoked at SNF a few days before coming to the hospital due to confusion Hypernatremia resolved Follow BMP closely Transaminitis secondary to sepsis and liver cancer fairly stable Hypokalemia/ hypomagnesemia replaced both IV follow BMP Liver cancer Not on any active treatment at this point Family open to discuss goals of care Outpatient follow up with [facility] at [facility] Elevated troponin trops flat likely demand related. no chest pain Hypertension prn hydralazine losartan if able to take po h/o PE continue Eliquis h/o CVA left side weakness stage 2 pressure wound to cocyxx local wound care DVT PPX - Eliquis attending - dr. Howe Discussed case with patient's daughter, plan to transfer to detention facility likely transition to hospice Needs ongoing inpatient treatment for sepsis and hypernatremia pending final blood cultures to prevent possible decompensation to severe sepsis. <Leora Reyes NP - Last Filed: 01/31/22 11:35> Quality Stroke Does the patient have a stroke diagnosis?: No <Leora Reyes NP - Last Filed: 01/31/22 11:35> VTE Prior VTE?: No <Leora Reyes NP - Last Filed: 01/31/22 11:35> VTE Risk Level:: Medical - moderate - high <Leora Reyes NP - Last Filed: 01/31/22 11:35> VTE Device Contraindication: Treatment Not Indicated <Leora Reyes NP - Last Filed: 01/31/22 11:35> VTE Drug Contraindication: N/A - Med Ordered <Leora Reyes NP - Last Filed: 01/31/22 11:35>
[2022-01-31] MEDS: cefTRIAXone sodium 1 GM in 0.9 % Sodium Chloride 50 ML IV (10:40)
[2022-01-31 11:21] VITALS: BP 160/69; PULSE 77; RESP 20; TEMP 36.6; O2SAT 98
--- NOTE | 2022-01-31 13:26 | MHC.CLN ---
F/U PT WITH INCREASED NUTRITION RISK R/T PRESSURE INJURY PT IS CURRENTLY DAY 6 NPO PER PT'S CHOICE PT HAS DECLINED A FEEDING TUBE AT THIS TIME SIDEROGRAPHER NOTED: Patient and family declining advancing diet to Honey Thick/Puree at this time due to aspiration risk, aversion to food textures, pattern of gagging/wretching on food and liquids. PT WORKING WITH SIDEROGRAPHER CONTROLLED TRIALS ONLY AND PLAN IS TO D/C BACK TO SNF LIKELY TO TRANSITION TO HOSPICE WILL FOLLOW WITH TEAM AND PROVIDE SUPPORT NEEDED
--- NOTE | 2022-01-31 15:59 | HO.MIDLINE_ITS ---
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 Using ultrasound guidance, right basilic vein access was attempted twice by Belkys Rojas RN, unsuccessfully. Right basilic vein access was obtained by Beto Martinez RN on second attempt. 10CM X 20G NON PASV midline was positioned. The procedure was performed in S272. Ultrasound was used to document vein patency and for needle entry. A formal ultrasound picture was recorded. [employer] has released the line for use and it is currently dressed with a StatLock, Tegaderm, and CHG disc. Verification has been performed for blood return and line patency. Arm Circumference: 25CM Equipment: [employer] PowerGlide ST Midline catheter Catheter Type: 20G x 10CM NON PASV Midline Lot #: [id number]
--- NOTE | 2022-01-31 16:01 | PM.DS ---
DS: Providers Provider Date of admission: 01/25/22 15:09 Primary care physician: Preet Stallings III, MD Consults: 01/26/22 17:25 Consult to Gastroenterology Routine Consulting Provider: Bernarda Andujar Reason for consultation: dysphagia Has provider been notified: No 01/27/22 09:40 Consult to Hematology / Oncology Routine Consulting Provider: Grace Mchugh Reason for consultation: thrombocytopenia;h/o PE on Eliquis-now NPO Has provider been notified: No DS: Diagnosis Discharge Diagnosis (1) Cancer of liver: Status: Acute (2) Transaminitis: Status: Acute (3) Pneumonia: Status: Acute (4) Hypokalemia: Status: Acute (5) Sepsis: Status: Acute DS: Summary Hospital Course Hospital Course: HP as per admitting provider An 81 years old male with PMH of PE on Eliquis, CVA with left hemiparesis, dysphagia, liver cancers, HTN, BPH among other who [facility] the [facility] with confusion and a fall. The patient was not able to provide much of history but said that he has been feeling weaker and not eating well for the last few weeks.? His at the bedside reported that he went from [facility] to the hospital when he was diagnosed with PE then went back to a different facility where he sting right now.? She reports that he has been losing weight consistently for the last few months and his appetite was very low.? His metastatic liver cancer is not on any active treatment at this point.? The family still want him to be full code but they are open to discuss other options. Today he had a fall and an episode of being unresponsive at the facility with no reported head injury.? Evaluated in the emergency with chest x-ray which showed an evidence of pneumonia versus mass.? Lab workup was consistent with hypernatremia and elevated liver enzymes.? Noticed to have leukocytosis with lactic acidosis. Admitted for further evaluation and treatment . 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 also aware that patient is at high risk for aspiration Patient declined a feeding tube and at this point very anxious about eating anything due to fear of aspiration Plan for Midline for IV fluids at SNF Not been taking any medications at this time orally Sepsis secondary to aspiration pneumonia Initially with leukocytosis, lactic acidosis and tachycardia.? lactic acidosis and tachycardia resolved. CXR concerning for bilateral basal infiltrate vs mass Chest CT obtained which showed ++++ Treated with IV abx neg blood cx Thrombocytopenia Platelets decreasing since admission ? r/t to zosyn Zosyn stopped, changed to Rocephin and Flagyl seen evaluated by Hematology with recommendation to check DIC labs> negative, monitor CBC Metabolic encephalopathy.? Resolving 2/2 Hypernatremia secondary to dehydration and sepsis Normal ammonia HCP was invoked at SNF a few days before coming to the hospital due to confusion Transaminitis secondary to sepsis and liver cancer? HYpernatremia/Hypokalemia/ hypomagnesemia Likely from poor nutrition replaced Liver cancer Not on any active treatment at this point Family open to discuss goals of care Outpatient follow up with Dr. Vieyra at [facility] Elevated troponin trops flat likely demand related. no chest pain Hypertension prn hydralazine losartan if able to take po h/o PE continue Eliquis h/o CVA left side weakness, chronic stage 2 pressure wound to cocyxx local wound care Time Spent with Patient Time attestation: Total time spent providing and/or coordinating discharge services: Physical Exam Vital Signs: Vital Signs: Last Vital Signs Temp 97.8 F 01/31/22 11:21 Pulse 77 01/31/22 11:21 Resp 20 01/31/22 11:21 BP 160/69 H 01/31/22 11:21 Pulse Ox 98 01/31/22 11:21 O2 Del Method 01/31/22 11:21 BMI result Body Mass Index 21.9 Discharge Plan Discharge Referrals: Preet Stallings III, MD [Primary Care Provider] - 1 Week Discharge Medications: No Action lovastatin 40 mg tablet 1 tab PO BEDTIME aspirin 81 mg tablet,delayed release (DR/EC) 1 tab PO DAILY dexamethasone 0.5 mg tablet 0.5 mg PO DAILY timolol maleate (PF) 0.5 % dropperette 1 drp ophthalmic (eye) BEDTIME Zioptan (PF) 0.0015 % dropperette 1 drp ophthalmic (eye) BEDTIME losartan 50 mg Tablet 50 mg PO DAILY acetaminophen 325 mg Tablet 650 mg PO Q6H PRN (Reason: Pain) pantoprazole 40 mg Tablet,Delayed Release (Dr/Ec) 40 mg PO DAILY melatonin 5 mg Tablet 5 mg PO BEDTIME PRN (Reason: Insomnia) apixaban 5 mg Tablet 5 mg PO BID
[2022-01-31 16:23] VITALS: BP 131/62; PULSE 76; RESP 18; TEMP 36.4; O2SAT 97
--- NOTE | 2022-01-31 16:52 | PC.NURSE ---
Patient in NAD, denies pain at this time. Patient had midline placed in right arm, CT chest ordered. Patient repositioned throughout the day. Coccyx and left elbow dressing changed with foam dressing. Plan is for d/c back to [facility] tomorrow
[2022-01-31] MEDS: Heparin Sodium,Porcine Flush 50 UNITS/5 ML SYRINGE IVFLUSH (17:17)
--- NOTE | 2022-01-31 17:45 | MHC.SLORD ---
Speech Language Pathology Order Status: Attempted to see patient X 2 in a.m. today, patient was sleeping soundly, did not disturb. Will continue to follow.
[2022-01-31 20:00] VITALS: BP 152/67; PULSE 89; RESP 18; TEMP 36.5; O2SAT 98
[2022-01-31 20:02] LABS: Albumin Level 1.8 g/dL (3.5-5.0); Alkaline Phosphatase 1642 U/L (39-117); Anion Gap 17 (12-20); Aspartate Amino Transferase 316 U/L (5-37); Bilirubin Direct 3.7 mg/dL (0.0-0.5); Blood Urea Nitrogen 22 mg/dL (9-16); Calcium 7.3 mg/dL (8.4-10.2); Carbon Dioxide 18 mmol/L (22-29); Chloride 113 mmol/L (96-108); Creatinine Clr Calc Pharmacy 79.7; Estimated Glomerular Filt Rate > 60; Glucose Random 111 mg/dL (60-115); Potassium 4.3 mmol/L (3.3-5.1); Sodium 144 mmol/L (135-145); Total Protein 4.1 g/dL (6.5-8.0)
[2022-01-31 20:16] LABS: Alanine Aminotransferase 158 U/L (0-40)
[2022-01-31 23:18] VITALS: BP 148/64; PULSE 73; RESP 19; TEMP 36.5; O2SAT 99
[2022-02-01 02:59] VITALS: BP 189/73; PULSE 80; RESP 16; TEMP 36.4; O2SAT 97
[2022-02-01] MEDS: metroNIDAZOLE/NS 500 MG/100 ML PIGGYBACK 100 MG IV ×2 (03:25→11:14)
[2022-02-01] MEDS: Enoxaparin Sodium 80 MG/0.8 ML SYRINGE 70 MG SUBCUT ×2 (03:25→13:54)
[2022-02-01] MEDS: Dextrose 5 % and 0.9 % NaCl 1,000 ML 80 ML IVCONT (03:25)
[2022-02-01 07:40] VITALS: BP 146/55; PULSE 83; RESP 18; TEMP 36.2; O2SAT 93
[2022-02-01] MEDS: cefTRIAXone sodium 1 GM in 0.9 % Sodium Chloride 50 ML IV (09:34)
--- NOTE | 2022-02-01 09:56 | P.DS_ITS ---
DS: Providers Provider Date of Service: 02/01/22 Date of admission: 01/25/22 15:09 Date of discharge: 02/01/22 Primary care physician: Preet Stallings III, MD Consults: 01/26/22 17:25 Consult to Gastroenterology Routine Consulting Provider: Bernarda Andujar Reason for consultation: dysphagia Has provider been notified: No 01/27/22 09:40 Consult to Hematology / Oncology Routine Consulting Provider: Grace Mchugh Reason for consultation: thrombocytopenia;h/o PE on Eliquis-now NPO Has provider been notified: No DS: Transfer Hospital Acceptance Name of Facility: [facility] DS: Diagnosis Discharge Diagnosis (1) Cancer of liver: Status: Acute (2) Transaminitis: Status: Acute (3) Pneumonia: Status: Acute (4) Hypokalemia: Status: Acute (5) Sepsis: Status: Acute (6) Mass of lung: Status: Acute (7) Oropharyngeal dysphagia: Status: Acute (8) Thrombocytopenia: Status: Acute (9) Hypernatremia: Status: Acute DS: Summary Hospital Course Hospital Course: HPI as per admitting provider An 81 years old male with PMH of PE on Eliquis, CVA with left hemiparesis, dysphagia, liver cancers, HTN, BPH among other who [facility] and a [facility]. The patient was not able to provide much of history but said that he has been feeling weaker and not eating well for the last few weeks.? His at the bedside reported that [facility] when he was diagnosed with PE then went back to a different facility where he sting right now.? She reports that he has been losing weight consistently for the last few months and his appetite was very low.? His metastatic liver cancer is not on any active treatment at this point.? The family still want him to be full code but they are open to discuss other options. Today he had a fall and an episode of being unresponsive at the facility with no reported head injury.? Evaluated in the emergency with chest x-ray which showed an evidence of pneumonia versus mass.? Lab workup was consistent with hypernatremia and elevated liver enzymes.? Noticed to have leukocytosis with lactic acidosis. Admitted for further e valuation and treatment . Liver cancer Not on any active treatment at this point Family open to discuss goals of care Outpatient follow up with Dr. Vieyra at [facility] Left upper lobe lung mass ~2.5cm Noted on Chest CT on 01/31. Outpatient follow up with Dr. 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 lactic acidosis and tachycardia resolved. CXR concerning for bilateral basal infiltrate vs mass Treated with IV abx, initially zosyn which was Switched to Rocephin and Flagyl. Patient has completed 7 day course of antibiotics, will discontinue neg blood cx Thrombocytopenia Platelets decreasing since admission seen evaluated by Hematology with recommendation to check DIC labs> negative, monitor CBC as outpatient Metabolic encephalopathy.? Resolving 2/2 Hypernatremia secondary to dehydration and sepsis. Sodium normalized prior to discharge Normal ammonia HCP was invoked at [facility] a few days before coming to the hospital due to confusion Transaminitis secondary to sepsis and liver cancer? HYpernatremia/Hypokalemia/ hypomagnesemia Likely from poor nutrition replaced Elevated troponin trops flat likely demand related. no chest pain Hypertension prn hydralazine losartan if able to take po h/o PE Eliquis switched to therapeutic Lovenox as patient is unable to take p.o. intake h/o CVA left side weakness, chronic stage 2 pressure wound to cocyxx local wound care Status at Discharge Cognitive/behavioral status at discharge: Awake and alert, oriented to person but disoriented to place Time Spent with Patient Time attestation: Total time spent providing and/or coordinating discharge services: Discharge coordination time: Greater than 30 minutes Quality: Safe Use of Opioids Does Pt have an Active Cancer Diagnosis on the Problem List?: Yes Opioid Measure Date for [facility] Report: 01/02/22 Opioid Measure Time for [facility] Report: 10:05 Quality: Stroke Does the patient have a stroke diagnosis?: Yes Reason for No Anti-thrombotic at DC: N/A - Med Ordered Reason for No Anticoagulant at DC: N/A - Med Ordered Reason Not Initiating IV-Tpa: N/A - Med Ordered Reason for No Anti-thrombotic by Day Two: N/A - Med Ordered Reason for No Statin at DC: Not indicated Physical Exam Vital Signs: Vital Signs: Last Vital Signs Temp 97.2 F 02/01/22 07:40 Pulse 83 02/01/22 07:40 Resp 18 02/01/22 07:40 BP 146/55 H 02/01/22 07:40 Pulse Ox 93 02/01/22 07:40 O2 Del Method 02/01/22 07:40 BMI result Body Mass Index 21.9 patient sitting up in bed in no distress skin with icterus present left upper lobe crackles with decreased breath sounds at bilateral bases heart rate regular rhythm, S1-S2 heard positive bowel sounds with soft abdomen, nontender patient is awake, alert, knows his name but does not know why he is in the hospital, oriented to place DS: Data Data Completed and Pending Labs on day of discharge: Laboratory Results - last 24 hr 01/31/22 18:45 Sodium 144 Potassium 4.3 D Chloride 113 H Carbon Dioxide 18 L Anion Gap 17 BUN 22 H Creatinine 0.69 Estim Creat Clear Calc 79.7 Estimated GFR > 60 Random Glucose 111 D Calcium 7.3 L Total Bilirubin 5.0 H Direct Bilirubin 3.7 H AST 316 H ALT 158 H Alkaline Phosphatase 1642 H D Total Protein 4.1 L Albumin 1.[address] scan - chest: Radiologist's impression: ITS Impressions Chest X-Ray 01/25/22 11:30 IMPRESSION: Bilateral regions of parenchymal density which may be related to pneumonia however lung mass not excluded. Head CT 01/25/22 12:12 IMPRESSION: Generalized atrophy and nonspecific periventricular white matter disease. Left occipital and right subcortical white matter frontal infarcts similar to October 2021 exam. Small focus of intraparenchymal hemorrhage in the left posterior centrum semiovale is no longer seen. Modified Barium Swallow 01/26/22 14:44 IMPRESSION: Aspiration with nectar consistency. Deep penetration with thin liquids. Diminished oral pharyngeal phase of swallow, with significantly limited posterior tilt of the epiglottis likely secondary to obstruction by a prominent anterior cervical osteophyte. Please see speech pathologist report for further information and recommendations. Chest CT 01/31/22 17:14 IMPRESSION: 1. Irregular pleural-based mass left upper lobe measuring 2.5 cm. This is suspicious. Consider interventional radiology consult to assess for tissue sampling. 2. Dependent atelectasis at both lung bases. Bilateral pleural effusions. 3. Multiple low attenuating lesions in the liver suspicious of metastatic disease. MRI without and with contrast may be helpful for further assessment. 4. Osteosclerotic medial right clavicle. Fleischner guidelines were followed. Discharge Plan Discharge Anticipated Discharge Date/Time: 02/01/22 11:57 Patient Disposition: Xfer SNF Discharge Diagnosis: Liver cancer with left upper lobe mass Referrals: [facility] [Outside] - 1 Week Preet Stallings III, MD [Primary Care Provider] - 1 Week Discharge Medications: New hydralazine 20 mg/mL Solution 5 mg IVPUSH Q6H PRN (Reason: SBP >180) Qty: 10 0RF Protocol: Hold for SBP< HOLD for SBP < : 90 enoxaparin 80 mg/0.8 mL Syringe 70 mg subcut Q12H Qty: 10 0RF Continued dexamethasone 0.5 mg tablet 0.5 mg PO DAILY timolol maleate (PF) 0.5 % dropperette 1 drp ophthalmic (eye) BEDTIME Zioptan (PF) 0.0015 % dropperette 1 drp ophthalmic (eye) BEDTIME Discontinued lovastatin 40 mg tablet 1 tab PO BEDTIME aspirin 81 mg tablet,delayed release (DR/EC) 1 tab PO DAILY losartan 50 mg Tablet 50 mg PO DAILY acetaminophen 325 mg Tablet 650 mg PO Q6H PRN (Reason: Pain) pantoprazole 40 mg Tablet,Delayed Release (Dr/Ec) 40 mg PO DAILY melatonin 5 mg Tablet 5 mg PO BEDTIME PRN (Reason: Insomnia) apixaban 5 mg Tablet 5 mg PO BID Discharge Orders: Discharge Order (Routine); Ordered 02/01/22 Ordered By: Zak Meza Diet: NPO Activity on Discharge: As tolerated Stand Alone Forms: Patient Portal Discharge page Care Plan Goals: Discharge to [facility] with close outpatient follow up with Dr Vieyra, oncology Health Concerns: Nutritional status is a concern as patient is npo due to aspiration concerns. Also no longer taking po medications. Consider maintencance fluids through midline at intermediate Plan of Treatment: as per provider at [facility] Assessment: Recurrent aspiration risk. Will need outpatient oncology evaluation and treatment
--- NOTE | 2022-02-01 11:25 | MHC.CM.PN ---
Patient has been medically cleared for dc to [facility] today. Patient will return to [facility] today at 2PM, via [facility]. IMM addressed at bedside with Daughter/HCP/ Bettye and original has been given to her and a copy has been placed on the chart.
[2022-02-01 11:33] LABS: COVID-19 Test Invalid (Negative)
[2022-02-01 12:00] VITALS: BP 140/54; PULSE 80; RESP 16; TEMP 36.4; O2SAT 96
--- NOTE | 2022-02-01 12:10 | PC.NURSE ---
Report given to [facility]. Transport will be here at 230pm
[2022-02-01 12:27] LABS: COVID-19 Test Negative (Negative)
== END 2022-02-01 15:24 | disposition skilled nursing facility (03) | DRG 871 ==
LOC: HO.ED 14:33 → HO.EDOVER 15:18 → HO.IMC 19:31
PROVIDERS: Hospitalist; Internal Medicine; Nurse Practitioner Acute Care; Nurse Practitioner Family; Physician Assistant Medical; Admitting Provider Student in an Organized Health Care Education/Training Program; Emergency Provider Emergency Medicine; PCP Internal Medicine; Visit Provider Student in an Organized Health Care Education/Training Program
DX: A41.9 Sepsis, unspecified organism (principal); G93.41 Metabolic encephalopathy; J69.0 Pneumonitis due to inhalation of food and vomit; E87.0 Hyperosmolality and hypernatremia; I69.854 Hemiplegia and hemiparesis following other cerebrovascular disease affecting left non-dominant side; C78.7 Secondary malignant neoplasm of liver and intrahepatic bile duct; I10 Essential (primary) hypertension; D69.6 Thrombocytopenia, unspecified; R13.10 Dysphagia, unspecified; L89.152 Pressure ulcer of sacral region, stage 2; E86.0 Dehydration; E87.6 Hypokalemia; Z20.822 Contact with and (suspected) exposure to COVID-19; Z86.711 Personal history of pulmonary embolism; Z88.8 Allergy status to other drugs, medicaments and biological substances; Z79.899 Other long term (current) drug therapy
CPT/HCPCS: 36410; 36415; 70450; 71046; 71250; 74230; 80048; 80053; 80076; 82140; 83605; 83735; 83880; 84132; 84484; 85025; 85027; 85384; 85610; 85730; 87040; 87635; 92526; 92610; 92611; 93005; 99285; C1751; C1758; J0696; J1642; J1650; J2543; J3475; J8540

== ENCOUNTER 2022-01-31 06:37 | Outpatient (REF) | payer MEDICARE, OTHER, SELFPAY | END 2022-01-31 06:38 | disposition home or self-care (01) | LOC: HO.MMNH1L 06:37 | PROVIDERS: Visit Provider Family Medicine | DX: Z13.89 Encounter for screening for other disorder (principal) ==